=== PATIENT | female | born 1955 | race African-American/Black ===

== ENCOUNTER 2017-07-29 08:31 | Emergency (ER) | payer MEDICARE, OTHER ==
[~2017-07-29] VITALS: Ht 165.1 cm; Wt 60.0 kg
[~2017-07-29 08:31] MED LIST: AMLO10 PO; ATOR20TA42 PO; BACT800T5 PO; CEPH500C3 PO; DILA100C PO; FIORCAP6 PO; MOTI25CH PO; OMEP20TA PO
[2017-07-29 08:35] VITALS: BP 167/96; PULSE 98; RESP 14; TEMP 97; O2SAT 99
--- NOTE | 2017-07-29 08:57 | PD ---
HPI Chief Complaint: Skin Problem Time Seen by Provider: 08:56 Travel History International Travel<30 days: No Contact w/Intl Traveler<30days: No Traveled to known affect area: No History of Present Illness HPI 62-year-old Afro-[place] female presents the emergency department with generalized dry flaking rash over the past 2 weeks. Patient states the itchiness is "making her crazy". She states she did see her PCP who gave her lotion and she does not having cannot remember the name of. Patient denies fever, chills, or open wounds. Patient states she changed soaps a few weeks ago to Coast soap. She denies any other changes in her laundry detergent or lotions. No recent antibiotic treatment. No changes in diet. Patient denies history of eczema, in the past. She has no known drug allergies. 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) Diabetes: No Diminished Hearing: No Gastrointestinal Disorders: No GERD: No Glaucoma: No Headaches: No Hepatitis: No Hiatal Hernia: No Hypertension: No Kidney Stones: No Musculoskeletal: Yes (POLIO AT AGE 10) Neurologic: No Psychiatric: No Reproductive: No Respiratory: No Immunizations Current: No Myocardial Infarction: No Radiation Therapy: No Renal Failure: No Seizures: Yes Sickle Cell Disease: No Sleep Apnea: No Thyroid Disease: No Ulcer: No Tetanus Vaccination: > 5 Years Influenza Vaccination: Yes ?: Not Menopausal: Yes Past Surgical History Abdominal Surgery: No AICD: No Cardiac Surgery: No Ear Surgery: No Endocrine Surgery: No Eye Surgery: No Genitourinary Surgery: No Gynecologic Surgery: No Neurologic Surgery: No Oral Surgery: No Pacemaker: No Thoracic Surgery: No Other Surgery: Yes Social History Alcohol Use: No Tobacco Use: No Substance Use: No Allergies-Medications (Allergen,Severity, Reaction): Coded Allergies: No Known Allergies (Verified Adverse Reaction, Unknown, 07/29/17) Reported Meds & Prescriptions Reported Meds & Active Scripts Active Triamcinolone Topical 0.5 % Oint 1 Applic TOPICAL QID Prednisone (21) 10 mg tab Dose Pack (Prednisone) 10 Mg Pack 10 Mg PO DIRECTED Review of Systems Except as stated in HPI: all other systems reviewed are Neg General / Constitutional: No: Fever, Chills Eyes: No: Visual changes HENT: No: Headaches Cardiovascular: No: Chest Pain or Discomfort Respiratory: No: Shortness of Breath Gastrointestinal: No: Abdominal Pain Genitourinary: No: Dysuria Musculoskeletal: No: Pain Skin: Positive Rash, Positive Itching, Positive Dryness Neurologic: No: Weakness Psychiatric: No: Depression Endocrine: No: Polydipsia Hematologic/Lymphatic: No: Easy Bruising Physical Exam Narrative GENERAL: Patient appears in mild distress. She is seated in a wheelchair secondary to stroke with right-sided weakness. SKIN: Warm and dry. Patient is dry rough skin consistent with atopic dermatitis. There is no erythema, drainage, or signs of cellulitis. HEAD: Atraumatic. Normocephalic. EYES: Pupils equal and round. No scleral icterus. No injection or drainage. ENT: No nasal bleeding or discharge. Mucous membranes pink and moist. Pharynx is clear. Airway is patent. NECK: Trachea midline. No JVD. Supple and nontender. CARDIOVASCULAR: Regular rate and rhythm. RESPIRATORY: No accessory muscle use. Clear to auscultation. Breath sounds equal bilaterally. GASTROINTESTINAL: Abdomen soft, non-tender, nondistended. Hepatic and splenic margins not palpable. MUSCULOSKELETAL: Extremities without clubbing, cyanosis, or edema. No obvious deformities. NEUROLOGICAL: Awake and alert. No obvious cranial nerve deficits. Motor grossly within normal limits. Patient is noted right arm weakness as well as right leg weakness secondary to previous CVA.. Normal speech. PSYCHIATRIC: Appropriate mood and affect; insight and judgment normal. Data Data Last Documented VS Vital Signs Date Time Temp Pulse Resp B/P (MAP) Pulse Ox O2 Delivery O2 Flow Rate FiO2 07/29/17 08:35 97.0 98 14 167/96 (119) 99 Room Air MDM Medical Decision Making Medical Screen Exam Complete: Yes Emergency Medical Condition: Yes Medical Record Reviewed: Yes Differential Diagnosis Atopic dermatitis. Tinea. Rash. Narrative Course I do not suspect a fungal component to this rash. I Feel it is all eczema related. Patiently treated with prednisone dosepak as prescribed. Patient also given triamcinolone topical 0.5% ointment to be applied 4 times a day 30 g tube prescribed. Recommend frequent moisturization with something like petroleum jelly or unscented Awilda lotion. Patient follow with her primary care physician next week to ensure improvement. Patient can return with worsening symptoms if necessary. Diagnosis Primary Impression: Atopic dermatitis Qualified Codes: L20.84 - Intrinsic (allergic) eczema Patient Instructions: Acute Rash (ED), General Instructions Med/Other Pt SpecificInfo: Prescription(s) given Scripts Triamcinolone Topical (Triamcinolone Topical) 0.5 % Oint 1 APPLIC TOPICAL QID for Inflammation, #30 GM 0 Refills Prov: Fortino Rivas MD 07/29/17 Prednisone (21) 10 mg tab Dose Pack (Prednisone (21) 10 mg tab Dose Pack) 10 Mg Pack 10 MG PO DIRECTED for Inflammation, #1 DSPK 0 Refills Prov: Fortino Rivas MD 07/29/17 Disposition: 01 DISCHARGE HOME Condition: Stable Kannan Whitney Jul 29, 2017 08:57
[2017-07-29] MEDS ORDERED: PRED10PA PO (09:18)
[2017-07-29] MEDS ORDERED: TRIA0.5O TOPICAL (09:18)
== END 2017-07-29 09:36 | disposition home or self-care (01) ==
LOC: NEPD 08:31
DX: L20.84 Intrinsic (allergic) eczema (principal); M19.90 Unspecified osteoarthritis, unspecified site; J45.909 Unspecified asthma, uncomplicated; Z86.12 Personal history of poliomyelitis
CPT/HCPCS: 99283

== ENCOUNTER 2017-08-21 16:49 | Emergency (ER) | payer MEDICARE, OTHER ==
[~2017-08-21] VITALS: Ht 165.1 cm; Wt 73.0 kg
[~2017-08-21 16:49] MED LIST changes: -AMLO10 PO; -ATOR20TA42 PO; -BACT800T5 PO; -CEPH500C3 PO; -DILA100C PO; -FIORCAP6 PO; -MOTI25CH PO; -OMEP20TA PO; +PRED10PA PO; +TRIA0.5O TOPICAL
[2017-08-21 16:52] VITALS: BP 158/85; PULSE 113; RESP 20; TEMP 98.5; O2SAT 99
[2017-08-21] MEDS ORDERED: PRED20 PO (20:19)
[2017-08-21] MEDS ORDERED: MUPI2%T TOPICAL (20:19)
--- NOTE | 2017-08-21 20:23 | PD ---
HPI Chief Complaint: Skin Problem Time Seen by Provider: 20:14 Travel History International Travel<30 days: No Contact w/Intl Traveler<30days: No Traveled to known affect area: No History of Present Illness HPI 62-year-old female history of CVA with residual right-sided weakness presents for evaluation of pruritus. Symptoms have been going on intermittently for 1 month. Primarily the pruritus is on her left arm and hand, back, abdomen. She denies any new medications, creams, lotions, detergents, recent travel, recent change in living environment. She denies having any pets in the home. She was seen here last month for similar symptoms and was diagnosed with atopic dermatitis and prescribed prednisone and triamcinolone cream which residually resolved her symptoms but then they returned. Her primary care physician is Dr. Larios. No other complaints. 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) Diabetes: No Diminished Hearing: No Gastrointestinal Disorders: No GERD: No Glaucoma: No Headaches: No Hepatitis: No Hiatal Hernia: No Hypertension: No Kidney Stones: No Musculoskeletal: Yes (POLIO AT AGE 10) Neurologic: No Psychiatric: No Reproductive: No Respiratory: No Immunizations Current: No Myocardial Infarction: No Radiation Therapy: No Renal Failure: No Seizures: Yes Sickle Cell Disease: No Sleep Apnea: No Thyroid Disease: No Ulcer: No Menopausal: Yes Past Surgical History Abdominal Surgery: No AICD: No Cardiac Surgery: No Ear Surgery: No Endocrine Surgery: No Eye Surgery: No Genitourinary Surgery: No Gynecologic Surgery: No Neurologic Surgery: No Oral Surgery: No Pacemaker: No Thoracic Surgery: No Other Surgery: Yes Social History Alcohol Use: No Tobacco Use: No Substance Use: No Allergies-Medications (Allergen,Severity, Reaction): Coded Allergies: No Known Allergies (Verified Adverse Reaction, Unknown, 08/21/17) Reported Meds & Prescriptions Reported Meds & Active Scripts Active Prednisone 20 Mg Tab 20 Mg PO BID 5 Days Bactroban Topical (Mupirocin) 22 Gm Cream 1 Applic TOPICAL BID 7 Days Triamcinolone Topical 0.5 % Oint 1 Applic TOPICAL QID Prednisone (21) 10 mg tab Dose Pack (Prednisone) 10 Mg Pack 10 Mg PO DIRECTED Review of Systems Except as stated in HPI: all other systems reviewed are Neg Physical Exam Narrative GENERAL: Well-nourished female no acute distress SKIN: Warm and dry. Focal excoriated papular lesions noted on the back and abdomen and left arm. Dry flaky skin noted on the abdomen and back and arm. HEAD: Atraumatic. Normocephalic. EYES: Pupils equal and round. No scleral icterus. No injection or drainage. ENT: No nasal bleeding or discharge. Mucous membranes pink and moist. NECK: Trachea midline. No JVD. CARDIOVASCULAR: Regular rate and rhythm. No murmur appreciated. RESPIRATORY: No accessory muscle use. Clear to auscultation. Breath sounds equal bilaterally. GASTROINTESTINAL: Abdomen soft, non-tender, nondistended. Hepatic and splenic margins not palpable. MUSCULOSKELETAL: No obvious deformities. No clubbing. No cyanosis. No edema. NEUROLOGICAL: Awake and alert. No obvious cranial nerve deficits. Right arm and leg weakness from previous stroke. PSYCHIATRIC: Appropriate mood and affect; insight and judgment normal. Data Data Last Documented VS Vital Signs Date Time Temp Pulse Resp B/P (MAP) Pulse Ox O2 Delivery O2 Flow Rate FiO2 08/21/17 16:52 98.5 113 20 158/85 (109) 99 MDM Medical Decision Making Medical Screen Exam Complete: Yes Emergency Medical Condition: Yes Medical Record Reviewed: Yes Differential Diagnosis Atopic dermatitis, bug bites, flea bites, contact dermatitis, dyshidrotic eczema , fixed drug eruption Narrative Course The patient has dry flaky skin which is most consistent with atopic dermatitis. She also has several excoriated papular lesions which could be either excoriation secondary to scratching or focal bug or fleabites. I recommended that she have a electricity trading analyst come and evaluate her home for any infestation. I recommended that she use [id number] Benadryl, oatmeal baths, calamine lotion for itching. She will be discharged with Bactroban to use on the excoriated papular lesions as well as a short course of prednisone. Diagnosis Primary Impression: Atopic dermatitis Additional Impression: Excoriation Additional Instructions: As discussed, have an electricity trading analyst evaluate her home for any signs of infestation. Medication as prescribed. Use [id number] Benadryl for itching as well as calamine lotion, oatmeal baths. Follow-up with your primary care physician in 1-2 weeks. Return for any emergent medical conditions. Med/Other Pt SpecificInfo: Prescription(s) given Scripts Prednisone (Prednisone) 20 Mg Tab 20 MG PO BID for 5 Days, #10 TAB 0 Refills Prov: Gilbert Schaefer MD 08/21/17 Mupirocin Topical (Bactroban Topical) 22 Gm Cream 1 APPLIC TOPICAL BID for Mgmt Bacterial Infection for 7 Days, #1 TUBE 0 Refills Prov: Gilbert Schaefer MD 08/21/17 Disposition: 01 DISCHARGE HOME Condition: Stable Tarik Mariano Aug 21, 2017 20:23
== END 2017-08-21 20:51 | disposition home or self-care (01) ==
LOC: NEPD 16:49
DX: L20.9 Atopic dermatitis, unspecified (principal)
CPT/HCPCS: 99283

== ENCOUNTER 2018-07-28 15:25 | Inpatient (IN) ==
[2018-07-28] MEDS ORDERED: Sod Chloride 0.9% Inj 1,000 ML IV.SIG ONE (18:13)
--- NOTE | 2018-07-28 18:24 | ED ---
HPI General Chief complaint: Skin/Abscess/Foreign Body Stated complaint: Rash Time Seen by Provider: 07/28/18 17:50 Source: patient, family, EMS and RN notes reviewed Mode of arrival: EMS History of Present Illness HPI narrative: 63yF presenting with rash and right-sided hemiplegia. The patient states that she has a history of a seizure disorder and CVA at age 10; she takes Dilantin long-term and reports that she began to have a diffuse full- body rash several weeks ago and was given an "ointment" by her doctor, but does not remember the name. She also reports that last night (she is unsure what time ) she began to have difficulty moving her right arm or leg, associated with numbness. Her daughter went to see her today and reports that she was having difficulty with word-finding, was slurring her speech, and had a right-sided facial droop. 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 She states that her last known seizure was 8 months ago. Denies fever or chills, oral or mucosal lesions, chest pain, cough, nausea or vomiting, or dysuria. Also reports a history of psoriasis. Related Data Allergies Allergy/AdvReac Type Severity Reaction Status Date / Time No Known Allergies Allergy Verified 07/28/18 15:34 Review of Systems ROS: all other systems reviewed are negative [facility] History Provided By: Patient Social History Social History Substance History: No History of Abuse Smoking Status: Never smoker How Often Do You Have a Drink Containing Alcohol: Never Recent Travel in [facility] within the Last 8 Weeks: No Recent Out of Country Travel within the Last 8 Weeks: No Exam Const General: no acute distress [facility] Head: normocephalic and atraumatic Other: No apparent facial droop Tongue and uvula midline, no oral lesions Eyes General: appearance normal, both eyes and all related structures Pupils: PERRL Chest Chest: normal inspection of the chest Resp Effort & Inspection: normal respiratory effort Auscultation: no rhonchi and no wheezes Cardio Rate: tachycardic Rhythm: regular rhythm GI Inspection: non-distended Palpation: soft and nontender Skin Other: Desquamating rash to palm of left hand, across upper chest, abdomen, and back No excoriations No obvious oral lesions Neuro General: alert and awake Other: Please see NIHSS as documented on arrival RUE and RLE weakness with drift before 5 seconds, diminished sensation Can name 2 objects appropriately, no slurred speech or aphasia, answers questions appropriately, oriented x 3 Course Initial Documented Vital Signs Temperature 99.6 F 07/28/18 15:31 Pulse Rate 128 H 07/28/18 15:31 Respiratory Rate 20 07/28/18 15:31 Blood Pressure 124/64 07/28/18 15:31 Pulse Oximetry 99 07/28/18 15:31 Last Documented Vital Signs Temperature 99.6 F 07/28/18 15:31 Pulse Rate 128 H 07/28/18 15:31 Respiratory Rate 20 07/28/18 15:31 Blood Pressure 124/64 07/28/18 15:31 Pulse Oximetry 99 07/28/18 15:31 NIH Stroke Scale NIHSS Time Completed NIHSS Time Completed: 18:21 NIH Stroke Scale Level of Consciousness: 0-Alert Orientation Questions: 0-Answers both correct Responds to Commands: 0-Both tasks correct Gaze Eye Movement: 0-Horizontal movement WNL Visual Patel: 0-No visual field defect Facial Movement: 0-Normal Motor Functions Arm LEFT: 0-No drift Motor Functions Arm RIGHT: 2-Falls before 10 seconds Motor Functions Leg LEFT: 0-No drift Motor Functions Leg RIGHT: 2-Falls before 5 seconds Limb Ataxia: 0-No ataxia Sensory Loss: 1-Mild sensory loss Best Language: 0-Normal Articulation: 0-Normal Extinction or Inattention Sensory: 0-Absent Total: 5 Medical Decision Making [facility] Narrative Medical decision making narrative: Assessment: 63yF presenting with full-body desquamating rash and right upper/ lower extremity hemiplegia, unclear time of onset but >12 hours prior to arrival Plan: Labs IV fluids Benadryl CTH, CTA head/ neck Patient will likely need obs vs admission depending on results of workup Patient was seen as part of the RNA process by Dr. Lam. IMerle APRN I reviewed Dr. Ramirez's note as well as the recommended plan of care and disposition. Upon my evaluation of the patient she states that the rash started on Tuesday after she started a new laundry detergent. Patient complains of intense itching as well as pain on the palms of her hands. Daughter is at bedside and states patient has not had a seizure for at least 8 years. She reports that other has right-sided hemiparesis secondary to stroke she suffered at the age of 89 years old. Other states left-sided weakness started last night but has improved over the last day. He still has some left upper extremity weakness. Facial droop resolving. No left lower extremity weakness noted. Patient remains tachycardic. Await lab work as well as imaging studies. We will give IV fluids at 125 an hour. We will also add hydroxyzine 50 mg p.o. now as well as IV Decadron 8 mg now[address] Review[address] with Dr. Martinez who will assume care. Medical Screen Exam Complete: Yes Emergency Medical Condition: Yes Differential Diagnosis Differential Diagnosis: Differential diagnosis includes, but is not limited to: CVA, TIA, Flaco's paralysis, psoriasis, allergic reaction. No mucosal lesions or bullae concerning for TEN/ SJS Discharge Plan Physicians Team ED Provider: Ade Martinez Primary Care Provider: Familia Larios Status ED Status: With Doctor
[2018-07-28] MEDS ORDERED: Acetaminophen 325 MG Tablet PO ONE (19:07)
[2018-07-28] MEDS ORDERED: Sod Chloride 0.9% Inj 1,000 ML IV.SIG SCH (19:30)
[2018-07-28 20:17] LABS: Baso % (Auto) 0.1 % (0.0-2.0); Eos % (Auto) 0.1 % (0.0-4.0); Hematocrit 41.1 % (35.0-46.0); Hemoglobin 13.8 gm/dL (11.6-15.3); Lymph # (Auto) 1.6 th/mm3 (1.0-4.8); Lymph % (Auto) 5.9 % (9.0-44.0); Mean Corpuscular HGB Conc 33.5 % (32.0-36.0); Mean Corpuscular Hemoglobin 30.5 pg (27.0-34.0); Mean Corpuscular Volume 91.3 fL (80.0-100.0); Mean Platelet Volume 10.7 fL (7.0-11.0); Mono # (Auto) 0.8 th/mm3 (0.0-0.9); Mono % (Auto) 2.8 % (0.0-8.0); Neut # (Auto) 24.8 th/mm3 (1.8-7.7); Neut % (Auto) 91.1 % (16.0-70.0); Platelet Count 173 th/mm3 (150-450); Red Blood Count 4.51 mil/mm3 (4.00-5.30); Red Cell Distribution Width 14.8 % (11.6-17.2); White Blood Count 27.3 th/mm3 (4.0-11.0)
[2018-07-28 20:31] LABS: Albumin 4.2 g/dL (3.4-5.0); Anion Gap 9 meq/L (5-15); Aspartate Aminotransferase 18 U/L (15-37); Blood Urea Nitrogen 12 mg/dL (7-18); Calcium 9.1 mg/dL (8.5-10.1); Carbon Dioxide 24.9 meq/L (21.0-32.0); Chloride 101 meq/L (98-107); Glomerular Filtration Rate 71 mL/min (>89); Glucose,Random 86 mg/dL (74-106); Magnesium 2.1 mg/dL (1.5-2.5); Potassium 4.3 meq/L (3.5-5.1); Sodium 135 meq/L (136-145)
[2018-07-28 20:32] LABS: Alanine Aminotransferase 21 U/L (10-53)
[2018-07-28 20:42] LABS: Alkaline Phosphatase 93 U/L (45-117); Phenytoin (Dilantin) 4.1 mcg/mL (10.0-20.0); Thyroid Stimulating Hormone 0.734 uIU/mL (0.358-3.740); Total Protein 8.2 g/dL (6.4-8.2)
[2018-07-28] MEDS ORDERED: Vancomycin Inj 1,000 MG in Sodium Chlor 0.9% Inj 250 ML IV.SIG ONE (20:43)
[2018-07-28] MEDS ORDERED: Piperacil/Tazo 4.5 GM Premix 4.5 GM/100 ML BAG IV.SIG SCH (20:45)
--- NOTE | 2018-07-28 20:58 | ED ---
HPI General Chief complaint: Skin/Abscess/Foreign Body Stated complaint: Rash Time Seen by Provider: 07/28/18 17:50 Source: patient, family, EMS and RN notes reviewed Mode of arrival: EMS History of Present Illness HPI narrative: 63-year-old female came to the emergency room with history of generalized rash that started appearing since Tuesday evening. Patient says that the rash has been extremely pruritic. She has been applying cream and lotion but the condition is worsening at this point. Patient was brought by her daughter. She was tachycardic upon arrival. She was seen at the ER M a and blood test and CT scan was ordered. Patient has a remote history of stroke with right-sided paresis. Apparently she has been complaining of left-sided weakness as well. However the outstanding complain for the ER visit today was the pruritic rash. Patient also has a temperature of 99.7. Patient has history of seizure and is on Dilantin among many of her other medications. She also takes as needed Keflex for recurrent hydradenitis. Patient thinks that her rash could be related to a new detergent that she used couple days back. Patient was anxious but awake and answering questions appropriately. Related Data Home Medications Medication Instructions Recorded Confirmed amlodipine 10 mg PO DAILY 07/28/18 07/28/18 atorvastatin 20 mg PO DAILY 07/28/18 07/28/18 celecoxib 200 mg PO DAILY 07/28/18 07/28/18 lisinopril 10 mg PO DAILY 07/28/18 07/28/18 meclizine 25 mg PO TID PRN 07/28/18 07/28/18 omeprazole 20 mg PO DAILY 07/28/18 07/28/18 phenytoin sodium extended 100 mg PO BID 07/28/18 07/28/18 saliva substitute combo no.9 15 ml MUCOUS MEMBRANE TID-QID PRN 07/28/18 07/28/18 [Biotene Dry Mouth Oral Rinse] Previous Rx's Medication Instructions Recorded aspirin 81 mg PO DAILY 30 Days #30 tab 08/01/18 prednisone See Label Instructions .ROUTE 08/01/18 .COMPLEX #30 tab white petrolatum-mineral oil See Label Instructions .ROUTE 08/01/18 [Eucerin] .COMPLEX #57 g Allergies Allergy/AdvReac Type Severity Reaction Status Date / Time No Known Allergies Allergy Verified 07/28/18 15:34 Review of Systems ROS: all other systems reviewed are negative PMFSH History History Provided By: Patient Social History Social History Substance History: No History of Abuse Second Hand Smoke Exposure: No Smoking Status: Former smoker How Often Do You Have a Drink Containing Alcohol: Never Recent Travel in [facility] within the Last 8 Weeks: No Recent Out of Country Travel within the Last 8 Weeks: No Exam Narrative Exam Narrative: GENERAL: Awake, alert, anxious, moderate distress SKIN: Focused skin assessment warm/dry. Generalized, dry, cracking and peeling rash on the torso as well as extremities. Patient has similar rash on her lips across the vermil[place] border. She has foul-smelling desquamating rash in her groin area right more than left and appears to be in the vaginal and perineal area as well. HEAD: Atraumatic. Normocephalic. EYES: Pupils equal and round. No scleral icterus. No injection or drainage. ENT: No nasal bleeding or discharge. Mucous membranes pink and moist. NECK: Trachea midline. No JVD. CARDIOVASCULAR: Regular rate and rhythm. No murmur appreciated. RESPIRATORY: No accessory muscle use. Clear to auscultation. Breath sounds equal bilaterally. GASTROINTESTINAL: Abdomen soft, non-tender, nondistended. Hepatic and splenic margins not palpable. MUSCULOSKELETAL: No obvious deformities. No clubbing. No cyanosis. No edema. NEUROLOGICAL: Awake and alert. No obvious cranial nerve deficits. Motor grossly within normal limits. Normal speech. PSYCHIATRIC: Appropriate mood and affect; insight and judgment normal. Course Initial Documented Vital Signs Temperature 99.6 F 07/28/18 15:31 Pulse Rate 128 H 07/28/18 15:31 Respiratory Rate 20 07/28/18 15:31 Blood Pressure 124/64 07/28/18 15:31 Pulse Oximetry 99 07/28/18 15:31 Last Documented Vital Signs Temperature 98.3 F 08/01/18 12:00 Pulse Rate 2 L 08/01/18 12:00 Respiratory Rate 08/01/18 12:00 Blood Pressure 158/90 H 08/01/18 12:00 Pulse Oximetry 99 08/01/18 12:00 Critical Care Time Critical Care Time: Yes Total Critical Care Time: 45 Attestation: Aggregate critical care time was 45 minutes. Time to perform other separately billable procedures was not included in the critical care time. My time did not include minutes spent treating any other patients simultaneously or on activities that did not directly contribute to the patient's treatment. The services I provided to this patient were to treat and/or prevent clinically significant deterioration that could result in: Sepsis versus Valenzuela-Sundeep syndrome, sepsis protocol, fluid resuscitation I provided critical care services requiring my management, as noted below: Chart data review, documentation time, medication orders and management, vital sign assessments/reviewing monitor data, ordering and reviewing lab tests, ordering and interpreting/reviewing x-rays and diagnostic studies, care of the patient and discussion of the patient with the admitting physicians. Medical Decision Making MDM Narrative Medical decision making narrative: 8:56 PM patient had received 10 mg of Decadron before I saw the patient. 2 L of IV fluid bolus was ordered as well. Given the extensive leukocytosis have ordered Zosyn and vancomycin due to a possibility of infection/sepsis. 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 Patient is on Dilantin which is an offending agent for this. Case was discussed with the hospitalist was accepted the patient. Patient was given 1 mg of Ativan given her agitation and intense itching and scratching. Medical Screen Exam Complete: Yes Emergency Medical Condition: Yes Lab Data Result diagrams: 08/01/18 08:35 08/01/18 08:35 Lab Results 07/28/18 07/28/18 07/28/18 Range/Units 19:50 19:50 19:50 WBC 27.3 H (4.0-11.0) th/mm3 RBC 4.51 (4.00-5.30) mil/mm3 Hgb 13.8 (11.6-15.3) gm/dL Hct 41.1 (35.0-46.0) % MCV 91.3 (80.0-100.0) fL MCH 30.5 (27.0-34.0) pg MCHC 33.5 (32.0-36.0) % RDW 14.8 (11.6-17.2) % Plt Count 173 (150-450) th/mm3 MPV 10.7 (7.0-11.0) fL Prelim Diff (Auto) Neut % (Auto) 91.1 H (16.0-70.0) % Lymph % (Auto) 5.9 L (9.0-44.0) % [place] % (Auto) 2.8 (0.0-8.0) % Eos % (Auto) 0.1 (0.0-4.0) % Baso % (Auto) 0.1 (0.0-2.0) % Neut # (Auto) 24.8 H (1.8-7.7) th/mm3 Lymph # (Auto) 1.6 (1.0-4.8) th/mm3 [place] # (Auto) 0.8 (0.0-0.9) th/mm3 Eos # (Auto) 0.0 (0.0-0.4) th/mm3 Baso # (Auto) 0.0 (0.0-0.2) th/mm3 WBC Differential . Seg Neuts % (Manual) (16-70) % Band Neuts % (Manual) (0-6) % Lymphocytes % (Manual) (9-44) % Monocytes % (Manual) (0-8) % Abs Neuts (Manual) (1.8-7.7) th/mm3 Differential Comment Auto diff final Platelet Estimate (Normal) Platelet Morphology (Normal) RBC Morphology (Normal) [place] Cells (None) ESR (0-30) mm/hr PT 10.0 (9.8-11.6) sec INR 1.0 Ratio Sodium 135 L (136-145) meq/L Potassium 4.3 (3.5-5.1) meq/L Chloride 101 (98-107) meq/L Carbon Dioxide 24.9 (21.0-32.0) meq/L Anion Gap 9 (5-15) meq/L BUN 12 (7-18) mg/dL Creatinine 0.97 (0.50-1.00) mg/dL Estimated GFR 71 L (>89) mL/min Random Glucose 86 (74-106) mg/dL Lactic Acid (0.4-2.0) mmol/L Calcium 9.1 (8.5-10.1) mg/dL Magnesium 2.1 (1.5-2.5) mg/dL Total Bilirubin 0.6 (0.2-1.0) mg/dL AST 18 (15-37) U/L ALT 21 (10-53) U/L Alkaline Phosphatase 93 (45-117) U/L Total Creatine Kinase (26-192) U/L Troponin I Less than 0.02 L (0.02-0.05) ng/mL C-Reactive Protein (0.00-0.30) mg/dL Total Protein 8.2 (6.4-8.2) g/dL Albumin 4.2 (3.4-5.0) g/dL Triglycerides (42-150) mg/dL Cholesterol (120-200) mg/dL LDL Cholesterol, Calc (0-99) mg/dL HDL Cholesterol (40.0-60.0) mg/dL Cholesterol/HDL Ratio Ratio Vitamin B6 (2.1-21.7) ng/mL Vitamin B12 (193-986) pg/mL TSH 0.734 (0.358-3.740) uIU/mL Urine Color (Yellw/Straw) Urine Clarity (Clear) Urine pH (5.0-8.5) Ur Specific [place] (1.002-1.035) Urine Protein (Neg-Trace) mg/dL Urine Glucose (UA) (Negative) mg/dL Urine Ketones (Negative) mg/dL Urine Occult Blood (Negative) Urine Nitrate (Negative) Urine Bilirubin (Negative) Urine Urobilinogen (Less than 2) mg/dL Ur Leukocyte Esterase (Negative) Urine RBC (0-3) /hpf Urine WBC (0-5) /hpf Ur Squamous Epith Cells (0-5) /hpf Micro UA Comment Ur Microscopic Review Urine Culture Comments Vancomycin Trough (5.0-10.0) mcg/mL Random Vancomycin Comment Phenytoin 4.1 L (10.0-20.0) mcg/mL 07/28/18 07/28/18 07/28/18 Range/Units 19:50 19:50 19:50 WBC (4.0-11.0) th/mm3 RBC (4.00-5.30) mil/mm3 Hgb (11.6-15.3) gm/dL Hct (35.0-46.0) % MCV (80.0-100.0) fL MCH (27.0-34.0) pg MCHC (32.0-36.0) % RDW (11.6-17.2) % Plt Count (150-450) th/mm3 MPV (7.0-11.0) fL Prelim Diff (Auto) Neut % (Auto) (16.0-70.0) % Lymph % (Auto) (9.0-44.0) % [place] % (Auto) (0.0-8.0) % Eos % (Auto) (0.0-4.0) % Baso % (Auto) (0.0-2.0) % Neut # (Auto) (1.8-7.7) th/mm3 Lymph # (Auto) (1.0-4.8) th/mm3 [place] # (Auto) (0.0-0.9) th/mm3 Eos # (Auto) (0.0-0.4) th/mm3 Baso # (Auto) (0.0-0.2) th/mm3 WBC Differential Seg Neuts % (Manual) (16-70) % Band Neuts % (Manual) (0-6) % Lymphocytes % (Manual) (9-44) % Monocytes % (Manual) (0-8) % Abs Neuts (Manual) (1.8-7.7) th/mm3 Differential Comment Platelet Estimate (Normal) Platelet Morphology (Normal) RBC Morphology (Normal) [place] Cells (None) ESR 7 (0-30) mm/hr PT (9.8-11.6) sec INR Ratio Sodium (136-145) meq/L Potassium (3.5-5.1) meq/L Chloride (98-107) meq/L Carbon Dioxide (21.0-32.0) meq/L Anion Gap (5-15) meq/L BUN (7-18) mg/dL Creatinine (0.50-1.00) mg/dL Estimated GFR (>89) mL/min Random Glucose (74-106) mg/dL Lactic Acid (0.4-2.0) mmol/L Calcium (8.5-10.1) mg/dL Magnesium (1.5-2.5) mg/dL Total Bilirubin (0.2-1.0) mg/dL AST (15-37) U/L ALT (10-53) U/L Alkaline Phosphatase (45-117) U/L Total Creatine Kinase 170 (26-192) U/L Troponin I (0.02-0.05) ng/mL C-Reactive Protein 7.40 H (0.00-0.30) mg/dL Total Protein (6.4-8.2) g/dL Albumin (3.4-5.0) g/dL Triglycerides (42-150) mg/dL Cholesterol (120-200) mg/dL LDL Cholesterol, Calc (0-99) mg/dL HDL Cholesterol (40.0-60.0) mg/dL Cholesterol/HDL Ratio Ratio Vitamin B6 (2.1-21.7) ng/mL Vitamin B12 (193-986) pg/mL TSH (0.358-3.740) uIU/mL Urine Color (Yellw/Straw) Urine Clarity (Clear) Urine pH (5.0-8.5) Ur Specific [place] (1.002-1.035) Urine Protein (Neg-Trace) mg/dL Urine Glucose (UA) (Negative) mg/dL Urine Ketones (Negative) mg/dL Urine Occult Blood (Negative) Urine Nitrate (Negative) Urine Bilirubin (Negative) Urine Urobilinogen (Less than 2) mg/dL Ur Leukocyte Esterase (Negative) Urine RBC (0-3) /hpf Urine WBC (0-5) /hpf Ur Squamous Epith Cells (0-5) /hpf Micro UA Comment Ur Microscopic Review Urine Culture Comments Vancomycin Trough (5.0-10.0) mcg/mL Random Vancomycin Comment Phenytoin (10.0-20.0) mcg/mL 07/28/18 07/28/18 07/29/18 Range/Units 19:55 23:00 02:00 WBC (4.0-11.0) th/mm3 RBC (4.00-5.30) mil/mm3 Hgb (11.6-15.3) gm/dL Hct (35.0-46.0) % MCV (80.0-100.0) fL MCH (27.0-34.0) pg MCHC (32.0-36.0) % RDW (11.6-17.2) % Plt Count (150-450) th/mm3 MPV (7.0-11.0) fL Prelim Diff (Auto) Neut % (Auto) (16.0-70.0) % Lymph % (Auto) (9.0-44.0) % [place] % (Auto) (0.0-8.0) % Eos % (Auto) (0.0-4.0) % Baso % (Auto) (0.0-2.0) % Neut # (Auto) (1.8-7.7) th/mm3 Lymph # (Auto) (1.0-4.8) th/mm3 [place] # (Auto) (0.0-0.9) th/mm3 Eos # (Auto) (0.0-0.4) th/mm3 Baso # (Auto) (0.0-0.2) th/mm3 WBC Differential Seg Neuts % (Manual) (16-70) % Band Neuts % (Manual) (0-6) % Lymphocytes % (Manual) (9-44) % Monocytes % (Manual) (0-8) % Abs Neuts (Manual) (1.8-7.7) th/mm3 Differential Comment Platelet Estimate (Normal) Platelet Morphology (Normal) RBC Morphology (Normal) [place] Cells (None) ESR (0-30) mm/hr PT (9.8-11.6) sec INR Ratio Sodium (136-145) meq/L Potassium (3.5-5.1) meq/L Chloride (98-107) meq/L Carbon Dioxide (21.0-32.0) meq/L Anion Gap (5-15) meq/L BUN (7-18) mg/dL Creatinine (0.50-1.00) mg/dL Estimated GFR (>89) mL/min Random Glucose (74-106) mg/dL Lactic Acid 2.1 H 1.5 (0.4-2.0) mmol/L Calcium (8.5-10.1) mg/dL Magnesium (1.5-2.5) mg/dL Total Bilirubin (0.2-1.0) mg/dL AST (15-37) U/L ALT (10-53) U/L Alkaline Phosphatase (45-117) U/L Total Creatine Kinase (26-192) U/L Troponin I (0.02-0.05) ng/mL C-Reactive Protein (0.00-0.30) mg/dL Total Protein (6.4-8.2) g/dL Albumin (3.4-5.0) g/dL Triglycerides (42-150) mg/dL Cholesterol (120-200) mg/dL LDL Cholesterol, Calc (0-99) mg/dL HDL Cholesterol (40.0-60.0) mg/dL Cholesterol/HDL Ratio Ratio Vitamin B6 (2.1-21.7) ng/mL Vitamin B12 (193-986) pg/mL TSH (0.358-3.740) uIU/mL Urine Color Straw (Yellw/Straw) Urine Clarity Clear (Clear) Urine pH 6.0 (5.0-8.5) Ur Specific [place] 1.031 (1.002-1.035) Urine Protein Negative (Neg-Trace) mg/dL Urine Glucose (UA) Negative (Negative) mg/dL Urine Ketones Trace H (Negative) mg/dL Urine Occult Blood Negative (Negative) Urine Nitrate Negative (Negative) Urine Bilirubin Negative (Negative) Urine Urobilinogen Less than 2 (Less than 2) mg/dL Ur Leukocyte Esterase Negative (Negative) Urine RBC Less than 1 (0-3) /hpf Urine WBC 1 (0-5) /hpf Ur Squamous Epith Cells 3 (0-5) /hpf Micro UA Comment Cath-culture not ind Ur Microscopic Review Not Reportable Urine Culture Comments Cath-cult not ind Vancomycin Trough (5.0-10.0) mcg/mL Random Vancomycin Comment Phenytoin (10.0-20.0) mcg/mL 07/29/18 07/29/18 07/29/18 Range/Units 11:03 11:03 11:03 WBC 22.7 H (4.0-11.0) th/mm3 RBC 4.25 (4.00-5.30) mil/mm3 Hgb 13.2 (11.6-15.3) gm/dL Hct 39.2 (35.0-46.0) % MCV 92.3 (80.0-100.0) fL MCH 31.0 (27.0-34.0) pg MCHC 33.6 (32.0-36.0) % RDW 14.4 (11.6-17.2) % Plt Count 156 (150-450) th/mm3 MPV 10.3 (7.0-11.0) fL Prelim Diff (Auto) Neut % (Auto) 96.3 H (16.0-70.0) % Lymph % (Auto) 2.9 L (9.0-44.0) % [place] % (Auto) 0.7 (0.0-8.0) % Eos % (Auto) 0.0 (0.0-4.0) % Baso % (Auto) 0.1 (0.0-2.0) % Neut # (Auto) 21.9 H (1.8-7.7) th/mm3 Lymph # (Auto) 0.7 L (1.0-4.8) th/mm3 [place] # (Auto) 0.2 (0.0-0.9) th/mm3 Eos # (Auto) 0.0 (0.0-0.4) th/mm3 Baso # (Auto) 0.0 (0.0-0.2) th/mm3 WBC Differential . Seg Neuts % (Manual) (16-70) % Band Neuts % (Manual) (0-6) % Lymphocytes % (Manual) (9-44) % Monocytes % (Manual) (0-8) % Abs Neuts (Manual) (1.8-7.7) th/mm3 Differential Comment Auto diff final Platelet Estimate (Normal) Platelet Morphology (Normal) RBC Morphology (Normal) [place] Cells (None) ESR (0-30) mm/hr PT (9.8-11.6) sec INR Ratio Sodium 138 (136-145) meq/L Potassium 3.9 (3.5-5.1) meq/L Chloride 107 (98-107) meq/L Carbon Dioxide 23.2 (21.0-32.0) meq/L Anion Gap 8 (5-15) meq/L BUN 14 (7-18) mg/dL Creatinine 0.81 (0.50-1.00) mg/dL Estimated GFR 87 L (>89) mL/min Random Glucose 109 H (74-106) mg/dL Lactic Acid (0.4-2.0) mmol/L Calcium 8.5 (8.5-10.1) mg/dL Magnesium (1.5-2.5) mg/dL Total Bilirubin 0.4 (0.2-1.0) mg/dL AST 21 (15-37) U/L ALT 22 (10-53) U/L Alkaline Phosphatase 84 (45-117) U/L Total Creatine Kinase (26-192) U/L Troponin I (0.02-0.05) ng/mL C-Reactive Protein (0.00-0.30) mg/dL Total Protein 7.8 (6.4-8.2) g/dL Albumin 3.9 (3.4-5.0) g/dL Triglycerides 77 (42-150) mg/dL Cholesterol 148 (120-200) mg/dL LDL Cholesterol, Calc 76 (0-99) mg/dL HDL Cholesterol 56.2 (40.0-60.0) mg/dL Cholesterol/HDL Ratio 2.63 Ratio Vitamin B6 (2.1-21.7) ng/mL Vitamin B12 (193-986) pg/mL TSH (0.358-3.740) uIU/mL Urine Color (Yellw/Straw) Urine Clarity (Clear) Urine pH (5.0-8.5) Ur Specific [place] (1.002-1.035) Urine Protein (Neg-Trace) mg/dL Urine Glucose (UA) (Negative) mg/dL Urine Ketones (Negative) mg/dL Urine Occult Blood (Negative) Urine Nitrate (Negative) Urine Bilirubin (Negative) Urine Urobilinogen (Less than 2) mg/dL Ur Leukocyte Esterase (Negative) Urine RBC (0-3) /hpf Urine WBC (0-5) /hpf Ur Squamous Epith Cells (0-5) /hpf Micro UA Comment Ur Microscopic Review Urine Culture Comments Vancomycin Trough (5.0-10.0) mcg/mL Random Vancomycin Comment Phenytoin (10.0-20.0) mcg/mL 07/30/18 07/30/18 07/31/18 Range/Units 06:09 06:09 03:43 WBC 18.4 H (4.0-11.0) th/mm3 RBC 3.68 L (4.00-5.30) mil/mm3 Hgb 11.2 L D (11.6-15.3) gm/dL Hct 33.6 L (35.0-46.0) % MCV 91.3 (80.0-100.0) fL MCH 30.5 (27.0-34.0) pg MCHC 33.4 (32.0-36.0) % RDW 14.6 (11.6-17.2) % Plt Count 162 (150-450) th/mm3 MPV 10.8 (7.0-11.0) fL Prelim Diff (Auto) Slide review pending Neut % (Auto) 93.6 H (16.0-70.0) % Lymph % (Auto) 4.0 L (9.0-44.0) % [place] % (Auto) 2.2 (0.0-8.0) % Eos % (Auto) 0.0 (0.0-4.0) % Baso % (Auto) 0.2 (0.0-2.0) % Neut # (Auto) 17.3 H (1.8-7.7) th/mm3 Lymph # (Auto) 0.7 L (1.0-4.8) th/mm3 [place] # (Auto) 0.4 (0.0-0.9) th/mm3 Eos # (Auto) 0.0 (0.0-0.4) th/mm3 Baso # (Auto) 0.0 (0.0-0.2) th/mm3 WBC Differential Manual diff final Seg Neuts % (Manual) 92 H (16-70) % Band Neuts % (Manual) 4 (0-6) % Lymphocytes % (Manual) 2 L (9-44) % Monocytes % (Manual) 2 (0-8) % Abs Neuts (Manual) 17.7 H (1.8-7.7) th/mm3 Differential Comment . Platelet Estimate Normal (Normal) Platelet Morphology Normal (Normal) RBC Morphology (Normal) [place] Cells 1+ H (None) ESR (0-30) mm/hr PT (9.8-11.6) sec INR Ratio Sodium 144 143 (136-145) meq/L Potassium 4.4 4.6 (3.5-5.1) meq/L Chloride 112 H 111 H (98-107) meq/L Carbon Dioxide 23.4 27.7 (21.0-32.0) meq/L Anion Gap 9 4 L (5-15) meq/L BUN 14 13 (7-18) mg/dL Creatinine 0.73 0.80 (0.50-1.00) mg/dL Estimated GFR Greater than 89 88 L (>89) mL/min Random Glucose 89 119 H (74-106) mg/dL Lactic Acid (0.4-2.0) mmol/L Calcium 8.3 L 8.5 (8.5-10.1) mg/dL Magnesium (1.5-2.5) mg/dL Total Bilirubin (0.2-1.0) mg/dL AST (15-37) U/L ALT (10-53) U/L Alkaline Phosphatase (45-117) U/L Total Creatine Kinase (26-192) U/L Troponin I (0.02-0.05) ng/mL C-Reactive Protein (0.00-0.30) mg/dL Total Protein (6.4-8.2) g/dL Albumin (3.4-5.0) g/dL Triglycerides (42-150) mg/dL Cholesterol (120-200) mg/dL LDL Cholesterol, Calc (0-99) mg/dL HDL Cholesterol (40.0-60.0) mg/dL Cholesterol/HDL Ratio Ratio Vitamin B6 (2.1-21.7) ng/mL Vitamin B12 544 (193-986) pg/mL TSH (0.358-3.740) uIU/mL Urine Color (Yellw/Straw) Urine Clarity (Clear) Urine pH (5.0-8.5) Ur Specific [place] (1.002-1.035) Urine Protein (Neg-Trace) mg/dL Urine Glucose (UA) (Negative) mg/dL Urine Ketones (Negative) mg/dL Urine Occult Blood (Negative) Urine Nitrate (Negative) Urine Bilirubin (Negative) Urine Urobilinogen (Less than 2) mg/dL Ur Leukocyte Esterase (Negative) Urine RBC (0-3) /hpf Urine WBC (0-5) /hpf Ur Squamous Epith Cells (0-5) /hpf Micro UA Comment Ur Microscopic Review Urine Culture Comments Vancomycin Trough 22.6 H (5.0-10.0) mcg/mL Random Vancomycin Comment Phenytoin (10.0-20.0) mcg/mL 07/31/18 07/31/18 08/01/18 Range/Units 03:54 03:54 08:35 WBC 16.5 H (4.0-11.0) th/mm3 RBC 3.84 L (4.00-5.30) mil/mm3 Hgb 11.9 (11.6-15.3) gm/dL Hct 35.3 (35.0-46.0) % MCV 91.9 (80.0-100.0) fL MCH 31.0 (27.0-34.0) pg MCHC 33.8 (32.0-36.0) % RDW 14.5 (11.6-17.2) % Plt Count 160 (150-450) th/mm3 MPV 9.7 (7.0-11.0) fL Prelim Diff (Auto) Neut % (Auto) 89.1 H (16.0-70.0) % Lymph % (Auto) 7.1 L (9.0-44.0) % [place] % (Auto) 3.7 (0.0-8.0) % Eos % (Auto) 0.0 (0.0-4.0) % Baso % (Auto) 0.1 (0.0-2.0) % Neut # (Auto) 14.7 H (1.8-7.7) th/mm3 Lymph # (Auto) 1.2 (1.0-4.8) th/mm3 [place] # (Auto) 0.6 (0.0-0.9) th/mm3 Eos # (Auto) 0.0 (0.0-0.4) th/mm3 Baso # (Auto) 0.0 (0.0-0.2) th/mm3 WBC Differential . Seg Neuts % (Manual) (16-70) % Band Neuts % (Manual) (0-6) % Lymphocytes % (Manual) (9-44) % Monocytes % (Manual) (0-8) % Abs Neuts (Manual) (1.8-7.7) th/mm3 Differential Comment Auto diff final Platelet Estimate (Normal) Platelet Morphology (Normal) RBC Morphology (Normal) [place] Cells (None) ESR (0-30) mm/hr PT (9.8-11.6) sec INR Ratio Sodium 140 (136-145) meq/L Potassium 4.2 (3.5-5.1) meq/L Chloride 108 H (98-107) meq/L Carbon Dioxide 24.3 (21.0-32.0) meq/L Anion Gap 8 (5-15) meq/L BUN 14 (7-18) mg/dL Creatinine 0.75 (0.50-1.00) mg/dL Estimated GFR Greater than 89 (>89) mL/min Random Glucose 90 (74-106) mg/dL Lactic Acid (0.4-2.0) mmol/L Calcium 9.0 (8.5-10.1) mg/dL Magnesium (1.5-2.5) mg/dL Total Bilirubin (0.2-1.0) mg/dL AST (15-37) U/L ALT (10-53) U/L Alkaline Phosphatase (45-117) U/L Total Creatine Kinase (26-192) U/L Troponin I (0.02-0.05) ng/mL C-Reactive Protein (0.00-0.30) mg/dL Total Protein (6.4-8.2) g/dL Albumin (3.4-5.0) g/dL Triglycerides (42-150) mg/dL Cholesterol (120-200) mg/dL LDL Cholesterol, Calc (0-99) mg/dL HDL Cholesterol (40.0-60.0) mg/dL Cholesterol/HDL Ratio Ratio Vitamin B6 2.5 (2.1-21.7) ng/mL Vitamin B12 (193-986) pg/mL TSH (0.358-3.740) uIU/mL Urine Color (Yellw/Straw) Urine Clarity (Clear) Urine pH (5.0-8.5) Ur Specific [place] (1.002-1.035) Urine Protein (Neg-Trace) mg/dL Urine Glucose (UA) (Negative) mg/dL Urine Ketones (Negative) mg/dL Urine Occult Blood (Negative) Urine Nitrate (Negative) Urine Bilirubin (Negative) Urine Urobilinogen (Less than 2) mg/dL Ur Leukocyte Esterase (Negative) Urine RBC (0-3) /hpf Urine WBC (0-5) /hpf Ur Squamous Epith Cells (0-5) /hpf Micro UA Comment Ur Microscopic Review Urine Culture Comments Vancomycin Trough (5.0-10.0) mcg/mL Random Vancomycin Comment Phenytoin (10.0-20.0) mcg/mL 08/01/18 08/01/18 Range/Units 08:35 08:35 WBC 12.8 H (4.0-11.0) th/mm3 RBC 3.99 L (4.00-5.30) mil/mm3 Hgb 12.3 (11.6-15.3) gm/dL Hct 36.3 (35.0-46.0) % MCV 90.9 (80.0-100.0) fL MCH 30.8 (27.0-34.0) pg MCHC 33.9 (32.0-36.0) % RDW 14.4 (11.6-17.2) % Plt Count 176 (150-450) th/mm3 MPV 10.4 (7.0-11.0) fL Prelim Diff (Auto) Slide review pending Neut % (Auto) 77.7 H (16.0-70.0) % Lymph % (Auto) 16.2 (9.0-44.0) % [place] % (Auto) 5.8 (0.0-8.0) % Eos % (Auto) 0.0 (0.0-4.0) % Baso % (Auto) 0.3 (0.0-2.0) % Neut # (Auto) 10.0 H (1.8-7.7) th/mm3 Lymph # (Auto) 2.1 (1.0-4.8) th/mm3 [place] # (Auto) 0.7 (0.0-0.9) th/mm3 Eos # (Auto) 0.0 (0.0-0.4) th/mm3 Baso # (Auto) 0.0 (0.0-0.2) th/mm3 WBC Differential Manual diff final Seg Neuts % (Manual) 69 (16-70) % Band Neuts % (Manual) 10 H (0-6) % Lymphocytes % (Manual) 16 (9-44) % Monocytes % (Manual) 5 (0-8) % Abs Neuts (Manual) 10.1 H (1.8-7.7) th/mm3 Differential Comment . Platelet Estimate Normal (Normal) Platelet Morphology Normal (Normal) RBC Morphology Normal (Normal) [place] Cells (None) ESR (0-30) mm/hr PT (9.8-11.6) sec INR Ratio Sodium (136-145) meq/L Potassium (3.5-5.1) meq/L Chloride (98-107) meq/L Carbon Dioxide (21.0-32.0) meq/L Anion Gap (5-15) meq/L BUN (7-18) mg/dL Creatinine (0.50-1.00) mg/dL Estimated GFR (>89) mL/min Random Glucose (74-106) mg/dL Lactic Acid (0.4-2.0) mmol/L Calcium (8.5-10.1) mg/dL Magnesium (1.5-2.5) mg/dL Total Bilirubin (0.2-1.0) mg/dL AST (15-37) U/L ALT (10-53) U/L Alkaline Phosphatase (45-117) U/L Total Creatine Kinase (26-192) U/L Troponin I (0.02-0.05) ng/mL C-Reactive Protein (0.00-0.30) mg/dL Total Protein (6.4-8.2) g/dL Albumin (3.4-5.0) g/dL Triglycerides (42-150) mg/dL Cholesterol (120-200) mg/dL LDL Cholesterol, Calc (0-99) mg/dL HDL Cholesterol (40.0-60.0) mg/dL Cholesterol/HDL Ratio Ratio Vitamin B6 (2.1-21.7) ng/mL Vitamin B12 (193-986) pg/mL TSH (0.358-3.740) uIU/mL Urine Color (Yellw/Straw) Urine Clarity (Clear) Urine pH (5.0-8.5) Ur Specific [place] (1.002-1.035) Urine Protein (Neg-Trace) mg/dL Urine Glucose (UA) (Negative) mg/dL Urine Ketones (Negative) mg/dL Urine Occult Blood (Negative) Urine Nitrate (Negative) Urine Bilirubin (Negative) Urine Urobilinogen (Less than 2) mg/dL Ur Leukocyte Esterase (Negative) Urine RBC (0-3) /hpf Urine WBC (0-5) /hpf Ur Squamous Epith Cells (0-5) /hpf Micro UA Comment Ur Microscopic Review Urine Culture Comments Vancomycin Trough (5.0-10.0) mcg/mL Random Vancomycin 10.6 Comment Phenytoin (10.0-20.0) mcg/mL Imaging Data Radiologist's impression: Head CT 07/28/18 18:13 CONCLUSION: 1. No acute abnormality is seen. 2. Encephalomalacia at the left frontal lobe from prior infarct. . . Head CTA 07/28/18 18:13 CONCLUSION: 1. Suspected occlusion at the cavernous portion of the left internal carotid artery 2. Collateral flow to anterior and left posterior communicating artery. 3. 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 . . Neck CTA 07/28/18 18:13 CONCLUSION: Severe narrowing of the entire length of the left internal carotid artery from the origin to the cavernous region. Head MRI 07/29/18 00:00 CONCLUSION: 1. 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 2. No acute infarction. Head MRA 07/29/18 10:27 CONCLUSION: 1. No large vessel stenosis or aneurysm. 2. Mild narrowing of the left M1 segment of the middle cerebral artery. Discharge Plan Discharge Disposition Patient Disposition: ED Admit(ED Internal Use Only) Discharge Condition Condition: Stable Discharge Order Discharge Orders: Discharge Order (Routine); Ordered 08/01/18 Ordered By: Mar Jin ED Use Only Admit Order (Routine); Ordered 07/28/18 Ordered By: Ade Martinez Discharge Details Anticipated Discharge Date: 08/01/18 Physicians Team ED Provider: Ade Martinez Primary Care Provider: Familia Larios Attending Provider: Sonali Ambrose Other Providers: Lowell Rondon Status ED Status: Left Department Discharge Information Discharge Date/Time: 07/28/18 23:13
[2018-07-28] MEDS ORDERED: Acetaminophen 325 MG Tablet PO PRN (20:59)
[2018-07-28] MEDS ORDERED: Vancomycin Consult Pharmacy OTHER PRN (20:59)
[2018-07-28] MEDS ORDERED: Bisacodyl 10 MG Supp RECTAL PRN (20:59)
[2018-07-28] MEDS ORDERED: Naloxone Inj 0.4 MG/ML Vial IV.PUSH PRN (20:59)
--- NOTE | 2018-07-28 21:03 | P.HPIM ---
History of Present Illness Primary Care Physician: Familia Larios DO History of Present Illness: This is a 63-year-old female with a PMH of HTN, Hyperlipidemia, h/o CVA w/ Right Hemiplegia and Seizure Disorder who presented to the ER w/ c/o itching/rash for 2-3wks, states she was seen by PCP and given an ointment, but no improvement. Pt's family initially reported pt w/ new slurred speech and right-facial droop, however pt denies any symptoms, currently without facial droop or slurred speech, chronic right-sided hemiparesis unchanged. On arrival, BP 124/64, HR 128, O2 sat 99% on RA, Temp 99.6. WBC 27.3. INR 1.0. Chemistry essentially unremarkable. Lactic Acid 2.1. Troponin negative. CRP 7.4. Dilantin 4.1. CT Head with no acute findings, encephalomalacia left frontal lobe from prior infarct. CTA Head suspected occlusion left internal carotid artery with collateral flow to anterior and left posterior commuting artery, moderate to severe stenosis left A1 segment anterior cerebral artery, all considered to be chronic in nature. CTA Neck pending. S/p Decadron/Benadryl, Vanc/Zosyn in ER. Diagnosis (1) Sepsis: (2) Seizure disorder: (3) CVA (cerebral vascular accident): (4) Rash: Inpatient Certification Inpatient Certification: I certify that the inpatient services were ordered in accordance with Medicare regulations governing the order. This includes certification that hospital inpatient services are reasonable and necessary and in the case of services not specified as inpatient-only under 42 CFR 419.22(n), that they are appropriately provided as inpatient services in accordance to with the 2-midnight benchmark under 43 CFR 412.3(e) Estimated Total Length of Stay (Days): 2 Plans for Post Hospital Care: Not yet determined Review of Systems PAST FAMILY HISTORY: Reviewed. No h/o DM or CAD Review of Systems: all other systems reviewed are negative [facility] Social History Social History Substance History: No History of Abuse Smoking Status: Never smoker How Often Do You Have a Drink Containing Alcohol: Never Recent Travel in [facility] within the Last 8 Weeks: No Recent Out of Country Travel within the Last 8 Weeks: No Medications and Allergies Allergies Allergy/AdvReac Type Severity Reaction Status Date / Time No Known Allergies Allergy Verified 07/28/18 15:34 Home Medications Medication Instructions Recorded Confirmed Type alclometasone 1 applic TOPICAL BID PRN 07/28/18 07/28/18 History amlodipine 10 mg PO DAILY 07/28/18 07/28/18 History atorvastatin 20 mg PO DAILY 07/28/18 07/28/18 History celecoxib 200 mg PO DAILY 07/28/18 07/28/18 History cyclobenzaprine 5 mg PO TID 07/28/18 07/28/18 History diphenhydramine-zinc acetate 1 applicatio TOPICAL BID PRN 07/28/18 07/28/18 History [Anti-Itch(diphenhyd) with Zinc] lisinopril 10 mg PO DAILY 07/28/18 07/28/18 History meclizine 25 mg PO TID PRN 07/28/18 07/28/18 History omeprazole 20 mg PO DAILY 07/28/18 07/28/18 History phenytoin sodium extended 100 mg PO BID 07/28/18 07/28/18 History saliva substitute combo no.9 15 ml MUCOUS MEMBRANE TID-QID PRN 07/28/18 History [Biotene Dry Mouth Oral Rinse] Active Medications: Active Medications Sodium Chloride (Ns Inj) 1,000 mls @ 125 mls/hr IV.CONT .Q8H HALLEY Piperacillin/Tazobactam/Dextrose (Zosyn 4.5 Gm Premix) 4.5 gm in 100 mls @ 200 mls/hr IV.SIG ONCE HALLEY Vancomycin HCl 1,000 mg/ (Sodium Chloride) 250 mls @ 250 mls/hr IV.SIG ONCE ONE Stop: 07/28/18 21:42 Sodium Chloride (Ns Flush) 2 ml IV.FLUSH PRN PRN PRN Reason: FLUSH AFTER USING IV ACCESS Physical Exam Vital signs: Vital Signs 07/28/18 15:31 07/28/18 20:01 Temperature 99.6 F Pulse Rate 128 H 131 H Respiratory Rate 20 20 Blood Pressure 124/64 118/57 L Pulse Oximetry 99 99 Intake & Output 07/28/18 07/28/18 07/29/18 06:59 18:59 06:59 Weight 76.204 kg Narrative: PE: GENERAL: Middle-aged black female in no acute distress. Sleepy after medications , chronic right-sided hemiparesis SKIN: Focused skin assessment warm and dry. HEENT: PERRLA, EOMI. No scleral icterus or conjunctival pallor. No lid lag or facial droop. CARDIOVASCULAR: Regular rate and rhythm. No obvious murmurs to auscultation. No chest tenderness to palpation. Desquamations chest RESPIRATORY: No obvious rhonchi or wheezing. Clear to auscultation. Breath sounds equal bilaterally. GASTROINTESTINAL: Abdomen soft, non-tender, nondistended. BS normal. + desquamations to perineal area, no open sores/lesions. MUSCULOSKELETAL: Extremities without clubbing, cyanosis, or edema. No obvious deformities. NEUROLOGICAL: Awake, alert and oriented x4. No new focal neurologic deficits. Moving both upper and lower extremities spontaneously. PSYCHIATRIC: Appropriate mood and affect. Insight and judgment normal. Results Labs CBC & Chem 7: 07/28/18 19:50 07/28/18 19:50 Caprini VTE Risk Assessment Caprini VTE Risk Assessment: No/Low Risk (score <= 1) Caprini Risk Assessment Model: Point Value = 1 Point Value = 2 Point Value = 3 Point Value = 5 Age 41-60 Minor surgery BMI > 25 kg/m2 Swollen legs Varicose veins or History of unexplained or recurrent spontaneous Oral contraceptives or hormone replacement Sepsis (< 1 month) Serious lung disease, including pneumonia (< 1 month) Abnormal pulmonary function Acute myocardial infarction Congestive heart failure (< 1 month) History of inflammatory bowel disease Medical patient at bed rest Age 61-74 Arthroscopic surgery Major open surgery (> 45 min) Laparoscopic surgery (> 45 min) Malignancy Confined to bed (> 72 hours) Immobilizing plaster cast Central venous access Age >= 75 History of VTE Family history of VTE Factor V Leiden Prothrombin [id number] Lupus anticoagulant Anticardiolipin antibodies Elevated serum homocysteine Heparin-induced thrombocytopenia Other congenital or acquired thrombophilia Stroke (< 1 month) Elective arthroplasty Hip, pelvis, or leg fracture Acute spinal cord injury (< 1 month) Prophylaxis Regimen: Total Risk Factor Score Risk Level Prophylaxis Regimen 0-1 Low Early ambulation 2 Moderate Order ONE of the following: *Sequential Compression Device (SCD) *Heparin 5000 units SQ BID 3-4 Higher Order ONE of the following medications: *Heparin 5000 units SQ TID *Enoxaparin/Lovenox 40 mg SQ daily (WT < 150 kg, CrCl > 30 mL/min) *Enoxaparin/Lovenox 30 mg SQ daily (WT < 150 kg, CrCl > 10-29 mL/min) *Enoxaparin/Lovenox 30 mg SQ BID (WT < 150 kg, CrCl > 30 mL/min) AND/OR *Sequential Compression Device (SCD) 5 or more Highest Order ONE of the following medications: *Heparin 5000 units SQ TID (Preferred with Epidurals) *Enoxaparin/Lovenox 40 mg SQ daily (WT < 150 kg, CrCl > 30 mL/min) *Enoxaparin/Lovenox 30 mg SQ daily (WT < 150 kg, CrCl > 10-29 mL/min) *Enoxaparin/Lovenox 30 mg SQ BID (WT < 150 kg, CrCl > 30 mL/min) AND *Sequential Compression Device (SCD) Assessment and Plan (1) Sepsis: Code(s): A41.9 - Sepsis, unspecified organism Status: Acute (2) Seizure disorder: Code(s): G40.909 - Epilepsy, unspecified, not intractable, without status epilepticus Status: Acute (3) CVA (cerebral vascular accident): Code(s): I63.9 - Cerebral infarction, unspecified Status: Acute (4) Rash: Code(s): R21 - Rash and other nonspecific skin eruption Status: Acute Plan A/P: 1. Sepsis: Temp 99.6, WBC 27, HR 128, Source-possibly UTI, continue w/ broad spectrum antibiotics, follow up cultures, IVF for hydration 2. Rash: pruritic, multiple areas of desquamation, no open lesions/ excoriations, unclear if medication related, possible exfoliative dermatitis from Dilantin, will hold Dilantin for now, Ativan prn, Seizure Precautions. 3. CVA: H/o CVA w/ right-sided hemiparesis, family noted new facial droop/ slurred speech, however pt denies, symptoms now resolved, CT Head w/ old infarct , CTA Head w/ occlusion left ICA, collateral flow anterior/left post communicating artery, moderate to severe stenosis left JADE, findings chronic per radialogy, will Consult Neurolog for further eval/recommendations, start ASA , resume home statin. 4. DVT Prohphylaxis: SCD/Teds 5. Social work for d/c planning as needed. 6. Case discusssed w/ ER physician at length, labs/records/imaging reviewed by me.
--- NOTE | 2018-07-28 21:16 | CT ---
EXAM DATE: 07/28/2018 9:11 PM EST AGE/SEX: 63 years / Female INDICATIONS: Right sided weakness. CLINICAL DATA: This is the patient's initial encounter. Patient reports that signs and symptoms have been present for 2 days and indicates a pain score of 0/10. MEDICAL/SURGICAL HISTORY: Seizures. Cerebrovascular disease. None. RADIATION DOSE: 56.35 CTDI (mGy) COMPARISON: C, CTA HEAD W CONTRAST W 3D, 07/28/2018. . TECHNIQUE: CT of the head without contrast. Using automated exposure control and adjustment of the mA and/or kV according to patient size, radiation dose was kept as low as reasonably achievable to ob tain optimal diagnostic quality images. DICOM format image data is available electronically for revi ew and comparison. FINDINGS: Cerebrum: There is encephalomalacia at the left frontal lobe. There is expansion of the anterior aspe ct of the left lateral ventricle in response to this. No acute areas of infarction or mass effect are seen. Other than the dilated left ventricle, the ventricles are within normal limits for the patient 's age. No evidence of midline shift, mass lesion, hemorrhage or acute infarction. No extraaxial flu id collections are seen. Posterior Fossa: The cerebellum and brainstem are intact. The 4th ventricle is midline. The cerebe llopontine angle is unremarkable. Extracranial: The visualized portion of the orbits is intact. Skull: The calvaria is intact. No evidence of skull fracture. CONCLUSION: 1. No acute abnormality is seen. 2. Encephalomalacia at the left frontal lobe from prior infarct. . . Electronically signed by: Ravinder Elaine MD Board Certified Radiologist 07/28/2018 9:14 PM EST
--- NOTE | 2018-07-28 21:39 | CT ---
EXAM DATE: 07/28/2018 9:21 PM EST AGE/SEX: 63 years / Female INDICATIONS: Right sided weakness. CLINICAL DATA: This is the patient's initial encounter. Patient reports that signs and symptoms have been present for 2 days and indicates a pain score of 0/10. MEDICAL/SURGICAL HISTORY: Seizures. Cerebrovascular disease. None. RADIATION DOSE: 10.29 CTDI (mGy) ; Combined studies COMPARISON: C, CT HEAD W/O CONTRAST, 07/28/2018. [facility] [place], CTA NECK W CONTRAST W 3D, 07/28/2018. . TECHNIQUE: Volumetric scanning was performed using a multi-row detector CT scanner during bolus infu abiel of 79 ml Omnipaque 350 (iohexol) nonionic water-soluble contrast as a cumulative dose for multi ple exams. The data was post processed with a variety of visualization algorithms including full vo lume maximum intensity projection, multi-planar sliding thin slab reformation, curved planar reformat ion, and surface rendering techniques. Using automated exposure control and adjustment of the mA and /or kV according to patient size, radiation dose was kept as low as reasonably achievable to obtain o ptimal diagnostic quality images. DICOM format image data is available electronically for review and comparison. FINDINGS: There appears to be occlusion of the cavernous portion of the left internal carotid artery. The right internal carotid artery is patent. There is collateral flow through a patent anterior communicating artery and a left posterior communicating artery. There is moderate to severe stenosis at the left A1 segment of the anterior cerebral artery. The distal anterior and middle cerebral artery flows appear intact. There is an area of encephalomalacia at the left frontal lobe from prior infarct. The verteb ral arteries are patent. There are seen to combined to form the basilar artery. The basilar artery se en to normally bifurcate into the posterior cerebral arteries. CONCLUSION: 1. Suspected occlusion at the cavernous portion of the left internal carotid artery 2. Collateral flow to anterior and left posterior communicating artery. 3. 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 . . Electronically signed by: Ravinder Elaine MD Board Certified Radiologist 07/28/2018 9:37 PM EST
--- NOTE | 2018-07-28 22:10 | CT ---
EXAM DATE: 07/28/2018 10:04 PM EST AGE/SEX: 63 years / Female INDICATIONS: Right sided weakness CLINICAL DATA: This is the patient's initial encounter. Patient reports that signs and symptoms have been present for 2 days and indicates a pain score of 0/10. MEDICAL/SURGICAL HISTORY: Seizures. Cerebrovascular disease. None. RADIATION DOSE: 10.29 CTDI (mGy) ; Combined studies COMPARISON: No prior exams available for comparison. TECHNIQUE: Volumetric scanning was performed using a multirow detector CT scanner during bolus infus ion of 79 ml Omnipaque 350 (iohexol) nonionic water-soluble contrast as a cumulative dose for multip le exams. The data was postprocessed with a variety of visualization algorithms including full-volu me maximum intensity projection, multiplanar sliding thin-slab reformation, curved-planar reformation , and surface-rendering techniques. Using automated exposure control and adjustment of the mA and/or kV according to patient size, radiation dose was kept as low as reasonably achievable to obtain opti mal diagnostic quality images. DICOM format image data is available electronically for review and co mparison. FINDINGS: Aortic Arch: There is a three-vessel origin of the great vessels from the aorta. No evidence of ost ial narrowing Right Carotid: The common carotid artery is intact. The carotid bulb has a normal configuration wit hout ulceration or narrowing. The internal carotid artery lumen is smooth without stenosis. The ext ernal carotid artery is intact. Left Carotid: The left common carotid artery is patent. There is severe narrowing of the left customer operations intern al carotid artery within the neck. There is filling of the left anterior and middle cerebral arteries through collaterals. Vertebrals: The vertebral arteries are asymmetric with the left vertebral artery being larger. They' re seen to normally combine to form the basilar artery. Percent stenosis is calculated using the diameter of the stenotic region over the diameter of the nor mal distal internal carotid artery. CONCLUSION: Severe narrowing of the entire length of the left internal carotid artery from the origin to the cave rnous region. Electronically signed by: Ravinder Elaine MD Board Certified Radiologist 07/28/2018 10:09 PM EST
[2018-07-28] MEDS: MethylPREDNISolone Sod Succinate Inj 40 MG/ML Vial IV.PUSH SCH (22:36)
[2018-07-28] MEDS: Senna/Docusate Sodium 8.6/50 MG Tablet PO SCH (22:36)
[2018-07-28] MEDS: Sod Chloride 0.9% Inj 1,000 ML IV.CONT SCH ×2 (22:37→23:00)
[2018-07-28] MEDS ORDERED: Vancomycin Inj 1,500 MG in Sodium Chlor 0.9% Inj 500 ML IV.SIG SCH (23:00)
[2018-07-28 23:46] LABS: Bilirubin,Urine Negative (Negative); Clarity,Urine Clear (Clear); Color,Urine Straw (Yellw/Straw); Glucose,Urine (UA) Negative (Negative); Leukocyte Esterase,Urine Negative (Negative); Nitrite,Urine Negative (Negative); Specific Gravity,Urine 1.031 (1.002-1.035); Squamous Epithelial Cell,Urine 3 /hpf (0-5)
[2018-07-29] MEDS: Sod Chloride 0.9% Inj 1,000 ML IV.CONT SCH ×5 (03:34→23:59)
[2018-07-29] MEDS: MethylPREDNISolone Sod Succinate Inj 40 MG/ML Vial IV.PUSH SCH ×4 (04:37→21:51)
[2018-07-29] MEDS: Senna/Docusate Sodium 8.6/50 MG Tablet PO SCH ×2 (09:18→20:21)
[2018-07-29] MEDS ORDERED: Phenytoin Sodium 100 MG Capsule PO ONE (09:45)
--- NOTE | 2018-07-29 10:27 | P.CONNEU ---
History of Present Illness Service: Neurology Primary Care Provider: Familia Larios DO Chief Complaint: Stroke eval History of Present Illness: 63-year-old female states she came into the ER with complaints of rash involving her left arm back and neck. History of stroke when she is 10 years of age resulting in right upper extremity paresis. She also developed post stroke seizures and has been taken Dilantin for this. She has not had a seizure in a number of years. She does not take any antiplatelet agent. Neurology was consulted for further evaluation. She denies any new weakness language disturbance or vision loss. Review of Systems All other systems reviewed negative except as stated in HPI [facility] - History History Provided By: Patient - Tobacco History Smoking Status: Never smoker - Alcohol History How Often Do You Have a Drink Containing Alcohol: Never - Substance Use History Substance History: No History of Abuse - Travel History Recent Travel in the [facility] Within the Last 8 Weeks: No Recent Travel Out of the Country Within the Last 8 Weeks: No Medications and Allergies Active Medications: Active Medications Acetaminophen (Tylenol) 650 mg PO Q4H PRN PRN Reason: Temp > 100.4 Hydrocodone Bitart/Acetaminophen ([place] 5/325) 1 tab PO Q4H PRN PRN Reason: PAIN SCALE 3 TO 5 Al Hydroxide/Mg Hydroxide (Milk Of Kailash Liq) 30 ml PO Q12H PRN PRN Reason: Mild Constipation Aspirin (Ecotrin) 81 mg PO DAILY [facility] Last Admin: 07/29/18 09:07 Dose: 81 mg Atorvastatin Calcium (Lipitor) 20 mg PO DAILY [facility] Last Admin: 07/29/18 09:07 Dose: 20 mg Bisacodyl (Dulcolax Supp) 10 mg RECTAL DAILY PRN PRN Reason: SEVERE CONSITIPATION Diphenhydramine HCl (Benadryl Inj) 25 mg IV.PUSH Q6H PRN PRN Reason: ITCHING Sodium Chloride (Ns Inj) 1,000 mls @ 125 mls/hr IV.CONT .Q8H [facility] Last Admin: 07/29/18 03:34 Dose: Not Given Piperacillin/Tazobactam/Dextrose (Zosyn 4.5 Gm Premix) 4.5 gm in 100 mls @ 200 mls/hr IV.SIG ONCE [facility] Cefepime HCl 1,000 mg/ Sodium (Chloride) 100 mls @ 200 mls/hr IV.SIG Q12H [facility] Last Admin: 07/29/18 09:08 Dose: 200 mls/hr Sodium Chloride (Ns Inj) 1,000 mls @ 100 mls/hr IV.CONT .Q10H [facility] Last Admin: 07/29/18 09:09 Dose: Not Given Vancomycin HCl 1,500 mg/ (Sodium Chloride) 515 mls @ 250 mls/hr IV.SIG Q18H [facility] Last Infusion: 07/29/18 03:51 Dose: Infused Lactulose (Lactulose Liq) 30 ml PO DAILY PRN PRN Reason: SEVERE CONSITIPATION Lorazepam (Ativan Inj) 1 mg IV.PUSH Q5M PRN PRN Reason: SEIZURES Methylprednisolone Sodium Succinate (Solumedrol Inj) 40 mg IV.PUSH Q6H [facility] Last Admin: 07/29/18 09:06 Dose: 40 mg Miscellaneous Information ([facility] Ordered Lab Info) 1 each OTHER ONCE ONE Stop: 07/31/18 04:46 Morphine Sulfate (Morphine Inj) 2 mg IV.PUSH Q4H PRN PRN Reason: PAIN SCALE 6 TO 10 Naloxone HCl (Narcan Inj) 0.4 mg IV.PUSH UNSCH PRN PRN Reason: SEE LABEL COMMENTS Ondansetron HCl (Zofran Inj) 4 mg IV.PUSH Q6H PRN PRN Reason: NAUSEA OR VOMITING Pharmacy Profile Note (Vancomycin Consult Pharmacy) 1 each OTHER UNSCH PRN PRN Reason: Pharmacy to dose Phenytoin Sodium (Dilantin) 100 mg PO BID [facility] Senna/Docusate Sodium (Francia-Colace) 1 tab PO BID [facility] Last Admin: 07/29/18 09:18 Dose: Not Given Sennosides (Senokot) 17.2 mg PO Q12H PRN PRN Reason: Moderate Constipation Sodium Chloride (Ns Flush) 2 ml IV.FLUSH PRN PRN PRN Reason: FLUSH AFTER USING IV ACCESS Sodium Chloride (Ns Flush) 2 ml IV.FLUSH BID [facility] Last Admin: 07/29/18 09:07 Dose: Not Given Sodium Chloride (Ns Flush) 2 ml IV.FLUSH PRN PRN PRN Reason: FLUSH AFTER USING IV ACCESS Allergies Allergy/AdvReac Type Severity Reaction Status Date / Time No Known Allergies Allergy Verified 07/28/18 15:34 Home Medications Medication Instructions Recorded Confirmed Type alclometasone 1 applic TOPICAL BID PRN 07/28/18 07/28/18 History amlodipine 10 mg PO DAILY 07/28/18 07/28/18 History atorvastatin 20 mg PO DAILY 07/28/18 07/28/18 History celecoxib 200 mg PO DAILY 07/28/18 07/28/18 History cyclobenzaprine 5 mg PO TID 07/28/18 07/28/18 History diphenhydramine-zinc acetate 1 applicatio TOPICAL BID PRN 07/28/18 07/28/18 History [Anti-Itch(diphenhyd) with Zinc] lisinopril 10 mg PO DAILY 07/28/18 07/28/18 History meclizine 25 mg PO TID PRN 07/28/18 07/28/18 History omeprazole 20 mg PO DAILY 07/28/18 07/28/18 History phenytoin sodium extended 100 mg PO BID 07/28/18 07/28/18 History saliva substitute combo no.9 15 ml MUCOUS MEMBRANE TID-QID PRN 07/28/18 History [Biotene Dry Mouth Oral Rinse] Exam Vital signs: Vital Signs 07/28/18 15:31 07/28/18 20:01 07/28/18 23:40 Temperature 99.6 F 98.4 F Pulse Rate 128 H 131 H 115 H Respiratory Rate 20 20 20 Blood Pressure 124/64 118/57 L 111/57 L Pulse Oximetry 99 99 98 Intake & Output 07/28/18 07/29/18 07/29/18 18:59 06:59 18:59 Intake Total 2515 / 2515 Output Total 600 / 600 Balance 2515 / 2515 -600 / -600 Weight 76.204 kg 70 kg Intake: IV 2515 / 2515 NS Inj 1,000 ML @ 1000 mls/hr 1000 / 1000 IV.SIG BOLUS [facility] Rx#:[id number] Vancomycin Inj 1,500 MG In NS 515 / 515 Inj 500 ML @ 250 mls/hr IV.SIG Q18H [facility] Rx#:[id number] Output: Urine 600 / 600 Other: # Voids 1 1 Weight On Admission 76.204 kg Narrative: Awake alert mildly obese sitting up in her chair. No aphasia. Visual torres full. Right upper extremity spastic flexed posture hand. Descaling type rash involving the left palmar surface neck upper back. Able to raise her left arm both lower extremities to gravity - Constitutional no acute distress - Routine HEENT Exam Head: Present: normocephalic Results - Labs CBC & Chem 7: 07/28/18 19:50 07/28/18 19:50 Labs: Laboratory Results - last 24 hr 07/28/18 07/28/18 07/28/18 19:50 19:50 19:50 WBC 27.3 H RBC 4.51 Hgb 13.8 Hct 41.1 MCV 91.3 MCH 30.5 MCHC 33.5 RDW 14.8 Plt Count 173 MPV 10.7 Neut % (Auto) 91.1 H Lymph % (Auto) 5.9 L [place] % (Auto) 2.8 Eos % (Auto) 0.1 Baso % (Auto) 0.1 Neut # (Auto) 24.8 H Lymph # (Auto) 1.6 [place] # (Auto) 0.8 Eos # (Auto) 0.0 Baso # (Auto) 0.0 WBC Differential . Differential Comment Auto diff final ESR PT 10.0 INR 1.0 Sodium 135 L Potassium 4.3 Chloride 101 Carbon Dioxide 24.9 Anion Gap 9 BUN 12 Creatinine 0.97 Estimated GFR 71 L Random Glucose 86 Lactic Acid Calcium 9.1 Magnesium 2.1 Total Bilirubin 0.6 AST 18 ALT 21 Alkaline Phosphatase 93 Total Creatine Kinase Troponin I Less than 0.02 L C-Reactive Protein Total Protein 8.2 Albumin 4.2 TSH 0.734 Urine Color Urine Clarity Urine pH Ur Specific [place] Urine Protein Urine Glucose (UA) Urine Ketones Urine Occult Blood Urine Nitrate Urine Bilirubin Urine Urobilinogen Ur Leukocyte Esterase Urine RBC Urine WBC Ur Squamous Epith Cells Micro UA Comment Ur Microscopic Review Urine Culture Comments Phenytoin 4.1 L 07/28/18 07/28/18 07/28/18 19:50 19:50 19:50 WBC RBC Hgb Hct MCV MCH MCHC RDW Plt Count MPV Neut % (Auto) Lymph % (Auto) [place] % (Auto) Eos % (Auto) Baso % (Auto) Neut # (Auto) Lymph # (Auto) [place] # (Auto) Eos # (Auto) Baso # (Auto) WBC Differential Differential Comment ESR 7 PT INR Sodium Potassium Chloride Carbon Dioxide Anion Gap BUN Creatinine Estimated GFR Random Glucose Lactic Acid Calcium Magnesium Total Bilirubin AST ALT Alkaline Phosphatase Total Creatine Kinase 170 Troponin I C-Reactive Protein 7.40 H Total Protein Albumin TSH Urine Color Urine Clarity Urine pH Ur Specific [place] Urine Protein Urine Glucose (UA) Urine Ketones Urine Occult Blood Urine Nitrate Urine Bilirubin Urine Urobilinogen Ur Leukocyte Esterase Urine RBC Urine WBC Ur Squamous Epith Cells Micro UA Comment Ur Microscopic Review Urine Culture Comments Phenytoin 07/28/18 07/28/18 07/29/18 19:55 23:00 02:00 WBC RBC Hgb Hct MCV MCH MCHC RDW Plt Count MPV Neut % (Auto) Lymph % (Auto) [place] % (Auto) Eos % (Auto) Baso % (Auto) Neut # (Auto) Lymph # (Auto) [place] # (Auto) Eos # (Auto) Baso # (Auto) WBC Differential Differential Comment ESR PT INR Sodium Potassium Chloride Carbon Dioxide Anion Gap BUN Creatinine Estimated GFR Random Glucose Lactic Acid 2.1 H 1.5 Calcium Magnesium Total Bilirubin AST ALT Alkaline Phosphatase Total Creatine Kinase Troponin I C-Reactive Protein Total Protein Albumin TSH Urine Color Straw Urine Clarity Clear Urine pH 6.0 Ur Specific [place] 1.031 Urine Protein Negative Urine Glucose (UA) Negative Urine Ketones Trace H Urine Occult Blood Negative Urine Nitrate Negative Urine Bilirubin Negative Urine Urobilinogen Less than 2 Ur Leukocyte Esterase Negative Urine RBC Less than 1 Urine WBC 1 Ur Squamous Epith Cells 3 Micro UA Comment Cath-culture not ind Ur Microscopic Review Not Reportable Urine Culture Comments Cath-cult not ind Phenytoin - Imaging Impressions Head CT 07/28/18 18:13 CONCLUSION: 1. No acute abnormality is seen. 2. Encephalomalacia at the left frontal lobe from prior infarct. . . Head CTA 07/28/18 18:13 CONCLUSION: 1. Suspected occlusion at the cavernous portion of the left internal carotid artery 2. Collateral flow to anterior and left posterior communicating artery. 3. 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 . . Neck CTA 07/28/18 18:13 CONCLUSION: Severe narrowing of the entire length of the left internal carotid artery from the origin to the cavernous region. Review/Management - Diagnosis (1) Chronic ischemic left MCA stroke Code(s): I69.30 - Unspecified sequelae of cerebral infarction Status: Acute Current Visit: Yes (2) Left carotid stenosis Code(s): I65.22 - Occlusion and stenosis of left carotid artery Status: Acute Current Visit: Yes (3) Rash Code(s): R21 - Rash and other nonspecific skin eruption Status: Acute Current Visit: Yes (4) Seizure disorder Code(s): G40.909 - Epilepsy, unspecified, not intractable, without status epilepticus Status: Acute Current Visit: Yes - Review/Management Plan: Chronic right upper extremity paresis. Patient came in for evaluation of rash. 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 Nonetheless appears to be long-standing Recommendation Medical management evaluation of her rash Aspirin 81 mg Behavioral modification and risk factor reduction. Weight loss, blood pressure control, blood sugar control, lipid control. Exercise Neurology sign off. she will follow-up with her outpatient physician
[2018-07-29 11:39] LABS: Baso % (Auto) 0.1 % (0.0-2.0); Hematocrit 39.2 % (35.0-46.0); Hemoglobin 13.2 gm/dL (11.6-15.3); Lymph # (Auto) 0.7 th/mm3 (1.0-4.8); Lymph % (Auto) 2.9 % (9.0-44.0); Mean Corpuscular HGB Conc 33.6 % (32.0-36.0); Mean Corpuscular Volume 92.3 fL (80.0-100.0); Mean Platelet Volume 10.3 fL (7.0-11.0); Mono # (Auto) 0.2 th/mm3 (0.0-0.9); Mono % (Auto) 0.7 % (0.0-8.0); Neut # (Auto) 21.9 th/mm3 (1.8-7.7); Neut % (Auto) 96.3 % (16.0-70.0); Platelet Count 156 th/mm3 (150-450); Red Blood Count 4.25 mil/mm3 (4.00-5.30); Red Cell Distribution Width 14.4 % (11.6-17.2); White Blood Count 22.7 th/mm3 (4.0-11.0)
[2018-07-29 12:03] LABS: Alanine Aminotransferase 22 U/L (10-53); Albumin 3.9 g/dL (3.4-5.0); Anion Gap 8 meq/L (5-15); Aspartate Aminotransferase 21 U/L (15-37); Blood Urea Nitrogen 14 mg/dL (7-18); Calcium 8.5 mg/dL (8.5-10.1); Carbon Dioxide 23.2 meq/L (21.0-32.0); Chloride 107 meq/L (98-107); Glomerular Filtration Rate 87 mL/min (>89); Glucose,Random 109 mg/dL (74-106); Potassium 3.9 meq/L (3.5-5.1); Sodium 138 meq/L (136-145)
[2018-07-29 12:05] LABS: Alkaline Phosphatase 84 U/L (45-117); Total Protein 7.8 g/dL (6.4-8.2)
[2018-07-29 12:06] LABS: Chol/HDL Ratio 2.63 Ratio; HDL Cholesterol 56.2 mg/dL (40.0-60.0)
--- NOTE | 2018-07-29 12:18 | P.PNIM ---
Subjective Interval history: patient admitted because of rash. Report rash started 4 days ago, around her neck, Lt arm, part of her abdomen. It is associated with itching. no recent new medication,no new foods. Physical Exam Vital signs: Vital Signs 07/28/18 15:31 07/28/18 20:01 07/28/18 23:40 Temperature 99.6 F 98.4 F Pulse Rate 128 H 131 H 115 H Respiratory Rate 20 20 20 Blood Pressure 124/64 118/57 L 111/57 L Pulse Oximetry 99 99 98 07/29/18 08:00 Temperature 98.1 F Pulse Rate 118 H Respiratory Rate 17 Blood Pressure 116/56 L Pulse Oximetry 100 Intake & Output 07/28/18 07/29/18 07/29/18 18:59 06:59 18:59 Intake Total 2515 / 2515 100 / 100 Output Total 600 / 600 Balance 2515 / 2515 -500 / -500 Weight 76.204 kg 70 kg Intake: IV 2515 / 2515 100 / 100 Maxipime Inj 1,000 MG In NS Inj 100 / 100 100 ML @ 200 mls/hr IV.SIG Q12H [facility] Rx#:[id number] NS Inj 1,000 ML @ 1000 mls/hr 1000 / 1000 IV.SIG BOLUS [facility] Rx#:[id number] Vancomycin Inj 1,500 MG In NS 515 / 515 Inj 500 ML @ 250 mls/hr IV.SIG Q18H [facility] Rx#:[id number] Output: Urine 600 / 600 Other: # Voids 1 1 Weight On Admission 76.204 kg Narrative: GENERAL: middle aged woman in no distress. HEENT:not pale,anicteric, smooth tongue,no aphthous ulcerations. NECK:no JVD CARDIOVASCULAR: Regular rate and rhythm without murmurs, gallops, or rubs. RESPIRATORY: Clear to auscultation. Breath sounds equal bilaterally. No wheezes , rales, or rhonchi. GASTROINTESTINAL: Abdomen soft, non-tender, nondistended. Normal active bowel sounds MUSCULOSKELETAL: Rt hemiplegia.RUE with spastic contracted hand NEURO: Alert & Oriented x4 to person, place, time, situation. SKIN: desquamative rash on lt and posterior aspect of neck,lt arm, lt hand with exfoliation. Similar rash noted on anterior abdomen. No weeping lesions. Results Labs CBC & Chem 7: 07/29/18 11:03 07/29/18 11:03 Labs: Microbiology 07/28/18 20:30 Blood - Peripheral Aerobic Blood Culture - Preliminary No growth in 1 day 07/28/18 20:30 Blood - Peripheral Anaerobic Blood Culture - Preliminary No growth in 1 day 07/28/18 20:45 Blood - Peripheral Aerobic Blood Culture - Preliminary No growth in 1 day 07/28/18 20:45 Blood - Peripheral Anaerobic Blood Culture - Preliminary No growth in 1 day Imaging Imaging: Impressions Head CT 07/28/18 18:13 CONCLUSION: 1. No acute abnormality is seen. 2. Encephalomalacia at the left frontal lobe from prior infarct. . . Head CTA 07/28/18 18:13 CONCLUSION: 1. Suspected occlusion at the cavernous portion of the left internal carotid artery 2. Collateral flow to anterior and left posterior communicating artery. 3. 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 . . Neck CTA 07/28/18 18:13 CONCLUSION: Severe narrowing of the entire length of the left internal carotid artery from the origin to the cavernous region. Assessment and Plan (1) Chronic ischemic left MCA stroke: Code(s): I69.30 - Unspecified sequelae of cerebral infarction Status: Acute (2) Left carotid stenosis: Code(s): I65.22 - Occlusion and stenosis of left carotid artery Status: Acute (3) Rash: Code(s): R21 - Rash and other nonspecific skin eruption Status: Acute (4) Seizure disorder: Code(s): G40.909 - Epilepsy, unspecified, not intractable, without status epilepticus Status: Acute Plan 63-year-old female with a PMH of HTN, Hyperlipidemia, h/o CVA w/ Right Hemiplegia and Seizure Disorder who presented to the ER w/ c/o itching/rash for 2-3wks, states she was seen by PCP and given an ointment, but no improvement. Acute problem: Exfoliative Rash- unclear etiology, with significant leucocytosis 27 on admission, has received antibiotics for possible sepsis. also on IV Methyl Prednisone. CRP 7.4, lactate initially mildly elevated, now normalized.leucocytosis trending down. blood cultures negative in 24hr Possibility of strep infection keep on IV fluids, monitor progress. Stable chronic conditions: #HTN/Hyperlipidemia:BP lower normal limits,hold meds for now. #h/o CVA,seizure-continue home medication
--- NOTE | 2018-07-29 13:52 | MR ---
EXAM DATE: 07/29/2018 12:50 PM EST AGE/SEX: 63 years / Female INDICATIONS: Dizziness. CLINICAL DATA: This is the patient's initial encounter. Patient reports that signs and symptoms have been present for 1 day and indicates a pain score of 0/10. MEDICAL/SURGICAL HISTORY: Hypertension. CVA. . ORIF right hip, humerus. COMPARISON: [facility], MRA HEAD W/O CONTRAST, 07/29/2018. . TECHNIQUE: Multiplanar, multisequence examination of the brain was performed without contrast. FINDINGS: Cerebrum: Large area of encephalomalacia in the left temporal and frontal lobes. There is ex vacuo d ilatation of the left lateral ventricle. No evidence of midline shift, mass lesion, hemorrhage or ac patricia infarction. No extraaxial fluid collections are seen. The pituitary gland and suprasellar ciste rn are normal in configuration. White Matter: No significant signal abnormalities are seen in the white matter. Posterior Fossa: The cerebellum and brainstem are intact. The 4th ventricle is midline. The cerebel lopontine angle is unremarkable. The cerebellar tonsils are normal in position. Diffusion Imaging: No focal areas of restricted diffusion are seen. No evidence of acute infarction . Extracranial: The visualized portions of the orbits and paranasal sinuses are unremarkable. CONCLUSION: 1. 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 2. No acute infarction. Electronically signed by: Rocky Mata MD Board Certified Radiologist 07/29/2018 1:51 PM EST
--- NOTE | 2018-07-29 13:55 | MR ---
EXAM DATE: 07/29/2018 12:50 PM EST AGE/SEX: 63 years / Female INDICATIONS: Dizziness. CLINICAL DATA: This is the patient's initial encounter. Patient reports that signs and symptoms have been present for 1 day and indicates a pain score of 0/10. MEDICAL/SURGICAL HISTORY: Hypertension. CVA. . ORIF right hip. ORIF right arm. COMPARISON: [facility], MR HEAD W/O CONTRAST, 07/29/2018. . TECHNIQUE: 3D [id number] MRA was performed. Source images, multiplanar STS MIP, and 3D volum e MIP reconstructions were reviewed. FINDINGS: There is excellent visualization of the major intracranial arteries out to the second-order branch ve ssels. There is no evidence for aneurysm, vessel truncation or stenosis, and no evidence for vascula r malformation. Hypoplastic left A1 segment. Anterior communicating artery. Dominant left vertebral a rtery. Small left posterior communicating artery. There is some mild narrowing the left M1 segment of the middle cerebral artery. CONCLUSION: 1. No large vessel stenosis or aneurysm. 2. Mild narrowing of the left M1 segment of the middle cerebral artery. Electronically signed by: Rocky Mata MD Board Certified Radiologist 07/29/2018 1:54 PM EST
--- NOTE | 2018-07-29 14:14 | ECG ---
Date Performed: 07/28/2018 Time Performed: 18:32:37 PTAGE: 63 years EKG: Marked baseline artifact SINUS TACHYCARDIA POSSIBLE ANTERIOR MYOCARDIAL INFARCTION ABNORMAL RHYTHM ECG Compared to prior electrocardiogram, rate has increased . PREVIOUS TRACING : 10/21/2008 07.13 DOCTOR: Luis Menjivar Interpretating Date/Time 07/29/2018 14:13:31
[2018-07-29] MEDS: Vancomycin Inj 1,500 MG in Sodium Chlor 0.9% Inj 500 ML IV.SIG SCH (15:53)
[2018-07-29] MEDS: Phenytoin Sodium 100 MG Capsule PO SCH (20:21)
[2018-07-29] MEDS: Morphine Sulfate Inj 2 MG/ML Vial IV.PUSH PRN (20:28)
[2018-07-30] MEDS: Sod Chloride 0.9% Inj 1,000 ML IV.CONT SCH ×6 (03:35→23:00)
[2018-07-30] MEDS: Vancomycin Inj 1,500 MG in Sodium Chlor 0.9% Inj 500 ML IV.SIG SCH ×2 (03:37→16:02)
[2018-07-30] MEDS: MethylPREDNISolone Sod Succinate Inj 40 MG/ML Vial IV.PUSH SCH ×4 (03:37→22:47)
[2018-07-30] MEDS: Morphine Sulfate Inj 2 MG/ML Vial IV.PUSH PRN ×2 (09:09→20:22)
[2018-07-30] MEDS: Senna/Docusate Sodium 8.6/50 MG Tablet PO SCH ×2 (09:13→20:21)
[2018-07-30] MEDS: Phenytoin Sodium 100 MG Capsule PO SCH ×2 (09:13→20:21)
[2018-07-30 09:33] LABS: Baso % (Auto) 0.2 % (0.0-2.0); Hematocrit 33.6 % (35.0-46.0); Hemoglobin 11.2 gm/dL (11.6-15.3); Lymph # (Auto) 0.7 th/mm3 (1.0-4.8); Mean Corpuscular HGB Conc 33.4 % (32.0-36.0); Mean Corpuscular Hemoglobin 30.5 pg (27.0-34.0); Mean Corpuscular Volume 91.3 fL (80.0-100.0); Mean Platelet Volume 10.8 fL (7.0-11.0); Mono # (Auto) 0.4 th/mm3 (0.0-0.9); Mono % (Auto) 2.2 % (0.0-8.0); Neut # (Auto) 17.3 th/mm3 (1.8-7.7); Neut % (Auto) 93.6 % (16.0-70.0); Platelet Count 162 th/mm3 (150-450); Red Blood Count 3.68 mil/mm3 (4.00-5.30); Red Cell Distribution Width 14.6 % (11.6-17.2); White Blood Count 18.4 th/mm3 (4.0-11.0)
[2018-07-30 09:48] LABS: Anion Gap 9 meq/L (5-15); Blood Urea Nitrogen 14 mg/dL (7-18); Calcium 8.3 mg/dL (8.5-10.1); Carbon Dioxide 23.4 meq/L (21.0-32.0); Chloride 112 meq/L (98-107); Glomerular Filtration Rate Greater Than 89 mL/min (>89); Glucose,Random 89 mg/dL (74-106); Potassium 4.4 meq/L (3.5-5.1); Sodium 144 meq/L (136-145)
[2018-07-30 10:40] LABS: Burr Cells 1+; Lymphocytes 2 % (9-44); Monocytes 2 % (0-8); Platelet Estimate Normal (Normal); Platelet Morphology Normal (Normal)
[2018-07-31] MEDS: MethylPREDNISolone Sod Succinate Inj 40 MG/ML Vial IV.PUSH SCH ×4 (03:43→21:21)
[2018-07-31] MEDS: Vancomycin Inj 1,500 MG in Sodium Chlor 0.9% Inj 500 ML IV.SIG SCH (03:44)
[2018-07-31] MEDS ORDERED: Pharmacy Ordered Lab Info OTHER ONE (03:45)
[2018-07-31 04:16] LABS: Baso % (Auto) 0.1 % (0.0-2.0); Hematocrit 35.3 % (35.0-46.0); Hemoglobin 11.9 gm/dL (11.6-15.3); Lymph # (Auto) 1.2 th/mm3 (1.0-4.8); Lymph % (Auto) 7.1 % (9.0-44.0); Mean Corpuscular HGB Conc 33.8 % (32.0-36.0); Mean Corpuscular Volume 91.9 fL (80.0-100.0); Mean Platelet Volume 9.7 fL (7.0-11.0); Mono # (Auto) 0.6 th/mm3 (0.0-0.9); Mono % (Auto) 3.7 % (0.0-8.0); Neut # (Auto) 14.7 th/mm3 (1.8-7.7); Neut % (Auto) 89.1 % (16.0-70.0); Platelet Count 160 th/mm3 (150-450); Red Blood Count 3.84 mil/mm3 (4.00-5.30); Red Cell Distribution Width 14.5 % (11.6-17.2); White Blood Count 16.5 th/mm3 (4.0-11.0)
[2018-07-31 04:21] LABS: Calcium 8.5 mg/dL (8.5-10.1); Carbon Dioxide 27.7 meq/L (21.0-32.0); Potassium 4.6 meq/L (3.5-5.1)
[2018-07-31 04:47] LABS: Vancomycin,Trough 22.6 mcg/mL (5.0-10.0)
[2018-07-31] MEDS: Sod Chloride 0.9% Inj 1,000 ML IV.CONT SCH ×5 (05:18→23:02)
[2018-07-31] MEDS: Phenytoin Sodium 100 MG Capsule PO SCH ×2 (09:09→21:20)
[2018-07-31] MEDS: Senna/Docusate Sodium 8.6/50 MG Tablet PO SCH ×2 (09:16→21:20)
--- NOTE | 2018-07-31 14:38 | P.PNIM ---
Subjective Interval history: rash is improving. less itchy today. Physical Exam Vital signs: Vital Signs 07/30/18 16:00 07/30/18 20:00 07/30/18 20:24 Temperature 98.7 F 98.3 F Pulse Rate 110 H 104 H Respiratory Rate 18 18 18 Blood Pressure 169/92 H 161/81 H Pulse Oximetry 96 97 07/31/18 00:00 07/31/18 00:18 07/31/18 04:01 Temperature 97.0 F L Pulse Rate 99 H 78 93 H Respiratory Rate 17 Blood Pressure 160/79 H Pulse Oximetry 96 07/31/18 04:49 07/31/18 08:00 07/31/18 12:00 Temperature 98.5 F 98.2 F 98.3 F Pulse Rate 97 H 94 H 107 H Respiratory Rate 19 19 Blood Pressure 156/86 H 147/96 H 156/96 H Pulse Oximetry 98 97 94 L Intake & Output 07/30/18 07/31/18 07/31/18 18:59 06:59 18:59 Intake Total 2175.2 / 2175.2 2395.2 / 2395.2 1100 / 1100 Output Total 250 / 250 Balance 1925.2 / 1925.2 2395.2 / 2395.2 1100 / 1100 Weight 71 kg Intake: IV 1615.2 / 1615.2 1615.2 / 1615.2 1100 / 1100 NS Inj 1,000 ML @ 100 mls/hr IV 1000 / 1000 1000 / 1000 1000 / 1000 .CONT .Q10H [facility] Rx#:[id number] Maxipime Inj 1,000 MG In NS Inj 100 / 100 100 / 100 100 / 100 100 ML @ 200 mls/hr IV.SIG Q12H [facility] Rx#:[id number] Vancomycin Inj 1,500 MG In NS 515.2 / 515.2 515.2 / 515.2 Inj 500 ML @ 250 mls/hr IV.SIG Q12H [facility] Rx#:[id number] Oral 560 / 560 780 / 780 Output: Urine 250 / 250 Other: # Voids 3 4 Date of Last Bowel Movement 07/30/18 07/30/18 07/30/18 # Bowel Movements 0 Narrative: GENERAL: middle aged woman in no distress. HEENT:not pale,anicteric, smooth tongue,no aphthous ulcerations. NECK:no JVD CARDIOVASCULAR: Regular rate and rhythm without murmurs, gallops, or rubs. RESPIRATORY: Clear to auscultation. Breath sounds equal bilaterally. No wheezes , rales, or rhonchi. GASTROINTESTINAL: Abdomen soft, non-tender, nondistended. Normal active bowel sounds MUSCULOSKELETAL: Rt hemiplegia.RUE with spastic contracted hand NEURO: Alert & Oriented x4 to person, place, time, situation. SKIN: desquamative rash on lt and posterior aspect of neck,lt arm, lt hand with exfoliation. Similar rash noted on anterior abdomen with erythema. No weeping lesions. Results Labs CBC & Chem 7: 07/31/18 03:54 07/31/18 03:43 Labs: Microbiology 07/28/18 20:30 Blood - Peripheral Aerobic Blood Culture - Preliminary No growth in 3 days 07/28/18 20:30 Blood - Peripheral Anaerobic Blood Culture - Preliminary No growth in 3 days 07/28/18 20:45 Blood - Peripheral Aerobic Blood Culture - Preliminary No growth in 3 days 07/28/18 20:45 Blood - Peripheral Anaerobic Blood Culture - Preliminary No growth in 3 days Assessment and Plan (1) Chronic ischemic left MCA stroke: Code(s): I69.30 - Unspecified sequelae of cerebral infarction Status: Acute (2) Left carotid stenosis: Code(s): I65.22 - Occlusion and stenosis of left carotid artery Status: Acute (3) Rash: Code(s): R21 - Rash and other nonspecific skin eruption Status: Acute (4) Seizure disorder: Code(s): G40.909 - Epilepsy, unspecified, not intractable, without status epilepticus Status: Acute Plan 63-year-old female with a PMH of HTN, Hyperlipidemia, h/o CVA w/ Right Hemiplegia and Seizure Disorder who presented to the ER w/ c/o itching/rash for 2-3wks, states she was seen by PCP and given an ointment, but no improvement. Acute problem: 1.Exfoliative Rash- unclear etiology, with significant leucocytosis 27 on admission, trended down to 16 today. abdominal wall erythema improving. CRP 7.4, lactate initially mildly elevated, now normalized. blood cultures negative to date continue Antibiotics. Stable chronic conditions: #HTN/Hyperlipidemia:BP lower normal limits,hold meds for now. #h/o CVA,seizure-continue home medication Progress Note: Quality VTE Deep Vein Thrombosis/Pulmonary Embolism Present on Admission: No
[2018-08-01] MEDS: MethylPREDNISolone Sod Succinate Inj 40 MG/ML Vial IV.PUSH SCH (03:41)
[2018-08-01] MEDS: Sod Chloride 0.9% Inj 1,000 ML IV.CONT SCH (06:13)
[2018-08-01 08:09] VITALS: RESP 19
[2018-08-01 09:26] LABS: Baso % (Auto) 0.3 % (0.0-2.0); Hematocrit 36.3 % (35.0-46.0); Hemoglobin 12.3 gm/dL (11.6-15.3); Lymph # (Auto) 2.1 th/mm3 (1.0-4.8); Lymph % (Auto) 16.2 % (9.0-44.0); Mean Corpuscular HGB Conc 33.9 % (32.0-36.0); Mean Corpuscular Hemoglobin 30.8 pg (27.0-34.0); Mean Corpuscular Volume 90.9 fL (80.0-100.0); Mean Platelet Volume 10.4 fL (7.0-11.0); Mono # (Auto) 0.7 th/mm3 (0.0-0.9); Mono % (Auto) 5.8 % (0.0-8.0); Neut % (Auto) 77.7 % (16.0-70.0); Platelet Count 176 th/mm3 (150-450); Red Blood Count 3.99 mil/mm3 (4.00-5.30); Red Cell Distribution Width 14.4 % (11.6-17.2); White Blood Count 12.8 th/mm3 (4.0-11.0)
[2018-08-01 09:54] LABS: Anion Gap 8 meq/L (5-15); Blood Urea Nitrogen 14 mg/dL (7-18); Carbon Dioxide 24.3 meq/L (21.0-32.0); Chloride 108 meq/L (98-107); Glomerular Filtration Rate Greater Than 89 mL/min (>89); Glucose,Random 90 mg/dL (74-106); Potassium 4.2 meq/L (3.5-5.1); Sodium 140 meq/L (136-145)
[2018-08-01 10:25] LABS: Lymphocytes 16 % (9-44); Monocytes 5 % (0-8); Platelet Estimate Normal (Normal); Platelet Morphology Normal (Normal); RBC Morphology Normal (Normal)
--- NOTE | 2018-08-01 11:10 | P.DS ---
DS: Providers Date of admission: 07/28/18 20:51 Primary care physician: Familia Larios DO Consults: 07/28/18 21:55 Consult to Neurology Routine Consulting Provider: Lowell Rondon Reason for Consultation: CVA CONSULT FOR AM Notified:: Service Spoke with:: DAWIT Date Notified:: 07/28/18 Time Notified:: 22:30 Ordering Provider: BACILIO Attending physician on discharge: Sonali Ambrose Anticipated date of discharge: 08/01/18 Brief History from admission: This is a 63-year-old female with a PMH of HTN, Hyperlipidemia, h/o CVA w/ Right Hemiplegia and Seizure Disorder who presented to the ER w/ c/o itching/rash for 2-3wks, states she was seen by PCP and given an ointment, but no improvement. Pt's family initially reported pt w/ new slurred speech and right-facial droop, however pt denies any symptoms, currently without facial droop or slurred speech, chronic right-sided hemiparesis unchanged. On arrival, BP 124/64, HR 128, O2 sat 99% on RA, Temp 99.6. WBC 27.3. INR 1.0. Chemistry essentially unremarkable. Lactic Acid 2.1. Troponin negative. CRP 7.4. Dilantin 4.1. CT Head with no acute findings, encephalomalacia left frontal lobe from prior infarct. CTA Head suspected occlusion left internal carotid artery with collateral flow to anterior and left posterior commuting artery, moderate to severe stenosis left A1 segment anterior cerebral artery, all considered to be chronic in nature. CTA Neck pending. S/p Decadron/Benadryl, Vanc/Zosyn in ER. Patient update on day of discharge: Patient seen and examined. Patient reports her rash is much improved. She denies any fever or chills. She denies any chest pain or dyspnea. She deneis any N/V or abdominal pain. JENNIFER RN, no adverse events noted overnight. DS: Diagnosis Discharge Diagnosis (1) Chronic ischemic left MCA stroke: Status: Acute (2) Left carotid stenosis: Status: Acute (3) Rash: Status: Acute (4) Seizure disorder: Status: Acute DS: Summary Patient admitted with sepsis and diffuse pruritic rash. She was started on broad spectrum antibiotics and IV steroids. Patient had previous hx of CVA with residual right sided deficit. Her family noted new facial droop and slurred speech although patient denied. CT Head w/ old infarct, CTA Head w/ occlusion left ICA, collateral flow anterior/left post communicating artery, moderate to severe stenosis left JADE, findings chronic per radiology. She was seen by Neurology who resumed her home Dilantin for previous history of seizure disorder and recommended 81mg ASA daily. Patient admitted that she had recently changed soap and detergent at home. She also had cleaned with bleach. Her white count trended down. Blood cultures failed to show any growth. Her rash improved. Patient was transitioned to tapering dose of oral steroids and discharged to home. Time Spent with Patient Total time spent providing and/or coordinating discharge services: Greater than 30 minutes Quality: VTE Deep Vein Thrombosis/Pulmonary Embolism Present on Admission: No Exam Narrative Exam Narrative: GENERAL: WDWN middle aged female, INAD. Awake and alert. Appears comfortable sitting up in bedside chair. SKIN: Dry flaky rash on chest, abdomen and back. +dry exfoliative rash on palms of left hand. HEENT: NC/AT. Pupils equal and round. No nasal drainage. MMM. NECK:trachea midline CARDIOVASCULAR: Regular rate and rhythm without murmurs, gallops, or rubs. RESPIRATORY: Clear to auscultation. Breath sounds equal bilaterally. No wheezes , rales, or rhonchi. GASTROINTESTINAL: Abdomen soft, non-tender, nondistended. Normal active bowel sounds MUSCULOSKELETAL: RT hemiplegia. RUE with spastic contracted hand. NEURO: Alert & Oriented x4 to person, place, time, situation. Right hemiplegia. Good strength in LUE and LLE. Normal speech. Results Labs on day of discharge: Labs from last 24 hours 08/01/18 08/01/18 08/01/18 08:35 08:35 08:35 WBC 12.8 H RBC 3.99 L Hgb 12.3 Hct 36.3 MCV 90.9 MCH 30.8 MCHC 33.9 RDW 14.4 Plt Count 176 MPV 10.4 Prelim Diff (Auto) Slide review pending Neut % (Auto) 77.7 H Lymph % (Auto) 16.2 [place]hin % (Auto) 5.8 Eos % (Auto) 0.0 Baso % (Auto) 0.3 Neut # (Auto) 10.0 H Lymph # (Auto) 2.1 [place] # (Auto) 0.7 Eos # (Auto) 0.0 Baso # (Auto) 0.0 WBC Differential Manual diff final Seg Neuts % (Manual) 69 Band Neuts % (Manual) 10 H Lymphocytes % (Manual) 16 Monocytes % (Manual) 5 Abs Neuts (Manual) 10.1 H Differential Comment . Platelet Estimate Normal Platelet Morphology Normal RBC Morphology Normal Sodium 140 Potassium 4.2 Chloride 108 H Carbon Dioxide 24.3 Anion Gap 8 BUN 14 Creatinine 0.75 Estimated GFR Greater than 89 Random Glucose 90 Calcium 9.0 Random Vancomycin 10.6 Preliminary micro results at discharge 07/28/18 20:30 Aerobic Blood Culture - Preliminary Blood - Peripheral No growth in 4 days Anaerobic Blood Culture - Preliminary No growth in 4 days 07/28/18 20:45 Aerobic Blood Culture - Preliminary Blood - Peripheral No growth in 4 days Anaerobic Blood Culture - Preliminary No growth in 4 days Impressions ITS Impressions Head CT 07/28/18 18:13 CONCLUSION: 1. No acute abnormality is seen. 2. Encephalomalacia at the left frontal lobe from prior infarct. . . Head CTA 07/28/18 18:13 CONCLUSION: 1. Suspected occlusion at the cavernous portion of the left internal carotid artery 2. Collateral flow to anterior and left posterior communicating artery. 3. 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 . . Neck CTA 07/28/18 18:13 CONCLUSION: Severe narrowing of the entire length of the left internal carotid artery from the origin to the cavernous region. Head MRI 07/29/18 00:00 CONCLUSION: 1. 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 2. No acute infarction. Head MRA 07/29/18 10:27 CONCLUSION: 1. No large vessel stenosis or aneurysm. 2. Mild narrowing of the left M1 segment of the middle cerebral artery. Discharge Plan Discharge Disposition Patient Disposition: Discharge Home Discharge Condition Condition: Stable Discharge Order Discharge Orders: Discharge Order (Routine); Ordered 08/01/18 Ordered By: Mar Jin Discharge Details Anticipated Discharge Date: 08/01/18 Physicians Team ED Provider: Ade Martinez Primary Care Provider: Familia Larios Attending Provider: Sonali Ambrose Other Providers: Lowell Rondon Rxs /Orders / Referrals /Forms Prescriptions: New aspirin 81 mg Tablet,Delayed Release (Dr/Ec) 81 mg PO DAILY 30 Days Qty: 30 RF: 0 prednisone 10 mg tablet See Label Instructions .ROUTE .COMPLEX Qty: 30 RF: 0 white petrolatum-mineral oil [Eucerin] Cream See Label Instructions .ROUTE .COMPLEX Qty: 57 RF: 0 Continue celecoxib 200 mg Capsule 200 mg PO DAILY RF: 0 atorvastatin 20 mg Tablet 20 mg PO DAILY RF: 0 phenytoin sodium extended 100 mg Capsule 100 mg PO BID RF: 0 meclizine 25 mg Tablet 25 mg PO TID PRN (Reason: Dizziness) RF: 0 amlodipine 10 mg Tablet 10 mg PO DAILY RF: 0 lisinopril 10 mg Tablet 10 mg PO DAILY RF: 0 omeprazole 20 mg Capsule,Delayed Release(Dr/Ec) 20 mg PO DAILY RF: 0 saliva substitute combo no.9 [Biotene Dry Mouth Oral Rinse] Mouthwash 15 ml MUCOUS MEMBRANE TID-QID PRN (Reason: Dry Mouth) RF: 0 Discontinued diphenhydramine-zinc acetate [Anti-Itch(diphenhyd) with Zinc] 2-0.1 % Cream 1 applicatio topical BID PRN (Reason: Itching) RF: 0 alclometasone 0.05 % Ointment 1 applic TOPICAL BID PRN (Reason: Rash) RF: 0 cyclobenzaprine 5 mg Tablet 5 mg PO TID RF: 0 Referrals: Neurologist [Outside] - See Instructions ( Please call the physician's office to book the appointment to be seen within one week.) Familia Larios DO [Primary Care Provider] - 08/07/18 10:00 am ( Please call the physician's office to book the appointment to be seen within one week.) Post Discharge Care Plan Care Plan Goals: Your Health Problems: Rash, suspect contact dermatitis Goals to Promote Your Health: * To prevent worsening of your condition * To maintain your health at the optimal level Directions to Meet Your Goals: * Take your medications as prescribed * Take 81mg Aspirin daily * Follow your dietary instruction * Follow activity as directed * Keep your appointments as scheduled * Take your immunizations and boosters as scheduled * If your symptoms worsen call your PCP * If no PCP go to Urgent Care or Emergency Room Smoking is dangerous to your health. Avoid second hand smoke. You may reach the 24-hour crisis hotline for domestic abuse at . Status ED Status: Left Department Discharge Information Discharge Date/Time: 08/01/18 13:43
[2018-08-01] MEDS ORDERED: Lisinopril 10 MG Tablet PO SCH (11:15)
[2018-08-01] MEDS ORDERED: amLODIPine 10 MG Tablet PO SCH (11:15)
--- NOTE | 2018-08-01 12:09 | P.PNWCN ---
Wound Care Nurse Consult Description: Wound care consulted for wound management to Abdominal/ peroneal area. Communicated with: Spoke with bedside nurse and Dr. Staley. Recommendation: Recomendations include Hydrating lotion to dry flaking skin to abdomen and peroneal areas BID and PRN as needed for comfort. Additional information: Patient seen today sitting up in chair. Skin isdry and intact. Some flaking noted. Presents as dry skin.
[2018-08-01 13:20] VITALS: BP 158/90; TEMP 98.3; O2SAT 99
[2018-08-01 15:22] VITALS: PULSE 2
--- NOTE | 2018-08-03 07:00 | ECG ---
Date Performed: 08/01/2018 Time Performed: 05:11:00 PTAGE: 63 years EKG: Sinus rhythm LOW QRS VOLTAGE IN PRECORDIAL LEADS NONSPECIFIC T-WAVE ABNORMALITY BORDERLINE ECG NO PREVIOUS TRACING DOCTOR: Dallas York Interpretating Date/Time 08/03/2018 06:59:39
== END 2018-08-01 13:43 | disposition home or self-care (01) | DRG 872 ==
LOC: NEPC 15:25 → NEDA 20:51 → N07 22:42
PROVIDERS: ADMIT Hospitalist; ATTEND Hospitalist
DX: I65.22 Occlusion and stenosis of left carotid artery; G40.909 Epilepsy, unspecified, not intractable, without status epilepticus; Z79.82 Long term (current) use of aspirin; I10 Essential (primary) hypertension; R21 Rash and other nonspecific skin eruption; E78.5 Hyperlipidemia, unspecified; R00.0 Tachycardia, unspecified; Z87.891 Personal history of nicotine dependence; I69.351 Hemiplegia and hemiparesis following cerebral infarction affecting right dominant side; A41.9 Sepsis, unspecified organism
CPT/HCPCS: 70450; 70496; 70498; 70544; 70551; 80048; 80053; 80061; 80185; 80202; 81001; 82550; 82607; 83605; 83735; 84207; 84443; 84484; 85025; 85610; 85651; 85652; 86140; 87040; 90761; 90774; 90775; 90784; 93005; 96361; 96374; 96375; 97110; 97116; 97163; 99285; C8952; J0692; J1100; J1200; J2060; J2270; J2920; J3370; J7030; J7040; Q9967